=== PATIENT | female | born 1945 | race Caucasian/White ===

== ENCOUNTER 2021-07-31 12:09 | Emergency (ER) | payer MEDICARE, SELFPAY ==
--- NOTE | ~2021-07-31 | XR_ITS ---
EXAMINATION: XR tibia fibula RT 2V INDICATION: Right leg pain TECHNIQUE: Two views of the right tibia and fibula are obtained. COMPARISON: None available FINDINGS: There is moderate osteoarthritis of the knee. No fracture, dislocation, or subluxation is i dentified. Bone alignment at the knee and ankle is normal. IMPRESSION: 1. No acute osseous abnormality. Reviewed, dictated and finalized at location A.
--- NOTE | ~2021-07-31 | XR_ITS ---
EXAMINATION: XR knee RT 3V EXAM DATE: 07/31/2021 13:41 INDICATION: Generalized Right Knee Pain S/P Several Falls. TECHNIQUE: Three projections of the right knee. Correlation is made to right tibia/fibula exam maria guadalupe bee same date. FINDINGS: No evidence osteochondral defect or joint body in the right knee joint. There is moderate patellofemoral and medial tibiofemoral compartment primary osteoarthritis. There are no acute fractu res or dislocations identified. There is no subcutaneous gas. The soft tissue is unremarkable. Th ere are no radiopaque foreign bodies. No joint effusion. IMPRESSION: 1. XR knee RT 3V exam without acute osseous findings. 2. Moderate osteoarthritis. Reviewed, dictated and finalized at location B.
--- NOTE | ~2021-07-31 | XR_ITS ---
EXAMINATION: XR knee LT 3V EXAM DATE: 07/31/2021 13:41 INDICATION: Generalized Left Knee Pain S/P Several Falls . TECHNIQUE: Three projections of the left knee. There is no prior study for comparison. FINDINGS: No evidence osteochondral defect or joint body in the left knee joint. There is mild to m oderate tricompartmental primary osteoarthritis. No joint effusion. There are no acute fractures or dislocations identified. There is no subcutaneous gas. The soft tissue is unremarkable. There are no radiopaque foreign bodies. IMPRESSION: Mild to moderate left knee osteoarthritis. Reviewed, dictated and finalized at location B.
[2021-07-31 12:15] VITALS: BP 199/74; PULSE 68; RESP 16; TEMP 36.6; O2SAT 99
--- NOTE | 2021-07-31 12:49 | ECG_ITS ---
Measurements Intervals [place] Rate: 63 P: 54 NE: 199 QRS: -1 QRSD: 98 T: 30 QT: 457 QTc: 470 Interpretive Statements SINUS RHYTHM VENTRICULAR PREMATURE COMPLEX NONSPECIFIC ST & T-WAVE ABNORMALITY- DIFFUSE LEADS BASELINE ARTIFACT- I, II, III, AVR, AVF, V1, V3-V6 BORDERLINE ECG Electronically Signed On 07-31-2021 16:07:00 CDT by Jose Eduardo Zeng D.O.
--- NOTE | 2021-07-31 12:53 | ED.GENADULT ---
HPI - General Adult General Chief complaint: Fall Stated complaint: weakness, mult falls, UTI symptoms Time Seen by Provider: 07/31/21 12:13 Source: patient History of Present Illness HPI narrative: Patient is a 75 y/o female complaining of generalized weakness and frequent falls for last year. She states that she uses a walker for ambulation at baseline. Her last fall was yesterday. She states that her knees gave out causing her to fall. She denies passing out or hitting her head. She has some abrasion and pain to right lower leg after her fall. She has been having pain to right back for last few weeks. She has some diarrhea. Related Data Allergies Allergy/AdvReac Type Severity Reaction Status Date / Time No Known Allergies Allergy Verified 07/31/21 12:29 Review of Systems Constitutional: Constitutional: Denies chills, Denies fever(s), Denies headache(s) and Denies weakness Eyes: Eyes: Denies blurry vision ENT: Denies headache(s) and Denies neck pain Cardiovascular: Cardiovascular: Denies chest pain and Denies dyspnea Respiratory: Respiratory: Denies cough and Denies dyspnea Gastrointestinal: Gastrointestinal: Denies abdominal pain, Reports diarrhea, Denies nausea and Denies vomiting Genitourinary: Genitourinary: Denies hematuria and Denies dysuria Musculoskeletal: Musculoskeletal: Reports back pain, Denies neck pain and Reports other (right leg pain) Neurologic: Denies headache(s) and Denies weakness Exam Const: General: no acute distress and well developed Orientation/consciousness: oriented to person, oriented to place, oriented to time and patient oriented x3 HENMT: Head: normocephalic Ears: external ears normal General nose exam: Normal external nose present Eyes: General: appearance normal, both eyes and all related structures Conjunctivae: conjunctivae normal Neck: Neck: normal visual inspection and full ROM Chest: Chest palpation & inspection: normal inspection of the chest and no tenderness Resp: Effort & Inspection: normal respiratory effort Auscultation: clear to auscultation bilaterally Cardio: Rate: regular rate Rhythm: regular rhythm GI: GI Palp: No abdominal tenderness and Yes Soft to palpation Skin: General skin exam: normal color and turgor normal Trauma: abrasion (right lower leg) Neuro: General: oriented to person, oriented to place, oriented to time and patient oriented x3 Cognition (Neuro): normal cognition Extrem: General: normal to inspection, full ROM and no pedal edema Psych: Appearance: grossly normal Mental Status: mental status grossly normal Affect: normal affect Course Reevaluation(s) Reevaluation #1: Rechecked. Offered patient possible placement for rehab. Patient declined and wanted to go home. She states that she is able to ambulate with a walker at home. Date: 07/31/21 Time: 15:52 Vital Signs Vital signs: Vital Signs Temperature 36.6 C 07/31/21 12:15 Pulse Rate 68 07/31/21 12:15 Respiratory Rate 16 07/31/21 12:15 Blood Pressure 199/74 H 07/31/21 12:15 Pulse Oximetry 99 07/31/21 12:15 Temperature 36.6 C 07/31/21 12:15 Pulse Rate 72 07/31/21 16:07 Respiratory Rate 18 07/31/21 16:07 Blood Pressure 157/97 H 07/31/21 16:07 Pulse Oximetry 100 07/31/21 16:07 Medical Decision Making Vital Signs Vital Signs: Vital Signs Temperature 36.6 C 07/31/21 12:15 Pulse Rate 68 07/31/21 12:15 Respiratory Rate 16 07/31/21 12:15 Blood Pressure 199/74 H 07/31/21 12:15 Pulse Oximetry 99 07/31/21 12:15 Temperature 36.6 C 07/31/21 12:15 Pulse Rate 72 07/31/21 16:07 Respiratory Rate 18 07/31/21 16:07 Blood Pressure 157/97 H 07/31/21 16:07 Pulse Oximetry 100 07/31/21 16:07 Lab Data Result diagrams: 07/31/21 13:22 07/31/21 13:22 Labs: Lab Results 07/31/21 07/31/21 07/31/21 Range/Units 13:12 13:22 13:22 WBC 7.7 (4.5-10.0) K/mm3 RBC 4.41 (4.2-5.4) M/mm3 Hg
[2021-07-31] MEDS: TETANUS,DIPHTHERIA,AC PERTUSSIS ADULT (0.5 ML) BOOSTRIX IM (13:23)
[2021-07-31 13:35] LABS: Add Urine Microscopic? YES; Appearance Urine Clear (Clear); Bilirubin Urine Negative (Negative); Blood Urine Negative (Negative); Color Urine Yellow (Yellow); Glucose Urine UA Negative (Negative); Ketones Urine Trace mg/dL (Negative); Leukocyte Esterase Ur 2+ LEU/UL (Negative); Mucus Urine Rare /lpf; Nitrate Urine Negative (Negative); Protein Urine 2+ mg/dL (Negative); Specific Grav Ur 1.019 (1.001-1.035); Squamous Epithelial Cell Urine Rare /hpf (Few); Urobilinogen Urine Negative mg/dL (<2.0)
[2021-07-31 13:36] LABS: Basophils Percent Auto 0.4 % (0.2-1.2); Eosinophils Absolute Auto 0.1 K/mm3 (0-0.3); Eosinophils Percent Auto 0.7 % (0-4.4); Hematocrit 37.9 % (37.0-47.0); Hemoglobin 12.8 g/dL (12.0-15.0); Immature Granulocyte Absolute 0.03 K/mm3 (0.00-0.031); Immature Granulocyte Percent A 0.4 % (0-0.5); Lymphocytes Absolute Auto 1.67 K/mm3 (0.9-3.2); Lymphocytes Percent Auto 21.8 % (18.3-44.2); Mean Corpuscular HGB Conc 33.8 g/dl (32-36); Mean Corpuscular Volume 85.9 fl (80-100); Mean Platelet Volume 9.3 fl (7.4-10.4); Monocytes Absolute Auto 0.5 K/mm3 (0.1-0.6); Monocytes Percent Auto 7.1 % (2.6-8.5); Neutrophils Absolute Auto 5.3 K/mm3 (1.3-6.7); Neutrophils Percent Auto 69.6 % (45.5-73.1); Platelet Count Result 209 k/mm3 (150-375); Red Blood Count 4.41 M/mm3 (4.2-5.4); White Blood Count 7.7 K/mm3 (4.5-10.0)
[2021-07-31 13:42] LABS: Alanine Aminotransferase 18 U/L (4-35); Albumin Level 4.1 g/dL (3.5-5.1); Alkaline Phosphatase 81 U/L (38-126); Anion Gap 10 mmol/L (8-16); Aspartate Amino Transferase 24 U/L (14-36); Bilirubin,Total 0.7 mg/dL (0.2-1.3); Blood Urea Nitrogen 18 mg/dL (7-17); Carbon Dioxide 26 mmol/L (22-30); Chloride 98 mmol/L (98-107); Estimated CRCL calculation 76 ml/min; Estimated Glomerular Filt Rate > 60; Glucose 115 mg/dL (65-110); Potassium 3.4 mmol/L (3.4-5.0); Sodium 134 mmol/L (137-145)
[2021-07-31 14:49] VITALS: BP 189/73; PULSE 70; RESP 22; O2SAT 98
[2021-07-31 16:07] VITALS: BP 157/97; PULSE 72; RESP 18; O2SAT 100
== END 2021-07-31 16:29 | disposition home or self-care (01) ==
PROVIDERS: Emergency Provider Emergency Medicine
DX: M17.0 Bilateral primary osteoarthritis of knee (principal); S80.811A Abrasion, right lower leg, initial encounter; N39.0 Urinary tract infection, site not specified; Z23 Encounter for immunization; W18.39XA Other fall on same level, initial encounter
CPT/HCPCS: 36415; 51701; 73562; 73590; 80053; 81001; 85025; 87086; 90471; 90715; 93005; 99283

== ENCOUNTER 2021-08-07 13:34 | Emergency (ER) | payer MEDICARE, SELFPAY ==
--- NOTE | ~2021-08-07 | XR_ITS ---
EXAMINATION: XR chest 1V portable INDICATION: Shortness of breath TECHNIQUE: Portable AP chest at 1409 hours COMPARISON: None available FINDINGS: The lungs are free of acute opacities. There is no pleural effusion or pneumothorax. The ca rdiomediastinal silhouette is normal. There is mild osteoarthritis of the shoulders. IMPRESSION: 1. No acute cardiopulmonary abnormality. Reviewed, dictated and finalized at location B.
--- NOTE | ~2021-08-07 | CT_ITS ---
EXAMINATION: CT abdomen pelvis wo con DATE: 08/07/2021 16:10 INDICATION: Right flank pain TECHNIQUE: Computed tomography (CT) of the abdomen and pelvis was performed without intravenous contr ast. The dose-length product (DLP) was 996.10 mGy-cm. Automated exposure control and iterative recons truction technique were employed. COMPARISON: None FINDINGS: Minimal dependent atelectasis is present in the lung bases. The heart size is normal. The l iver, spleen, pancreas, and adrenal glands are normal. The gallbladder is surgically absent. The kidn eys are unremarkable. No stones are identified in the kidneys, ureters, or bladder. There is no hydro nephrosis or hydroureter. There is calcified atherosclerosis of the aorta and many of the other arter ies. No pathologically enlarged abdominal or pelvic lymph nodes are identified. There is no free intr aperitoneal gas or evidence of bowel obstruction. There is moderate lumbar spondylosis. There is a fa t-containing umbilical hernia. IMPRESSION: 1. No CT correlate for the patient's symptoms. No urolithiasis, hydronephrosis, or hydroureter identi fied. Reviewed, dictated and finalized at location B. IMPRESSION: 1. No CT correlate for the patient's symptoms. No urolithiasis, hydronephrosis, or hydroureter identified.
--- NOTE | ~2021-08-07 | CT_ITS ---
EXAMINATION: CTA chest PE protocol EXAM DATE: 08/07/2021 16:10 INDICATION: Right flank pain, 3-4 days plus of breath. Nausea. Positive for edema. Recent kidney infe ction. TECHNIQUE: Spiral CTA of the chest (pulmonary arteries) was performed with 100 cc Omnipaque 350 intr avenous contrast injection. Images were acquired during the pulmonary arterial phase. Coronal maxi mum intensity projection 3D-reconstructions were created by the technologist on dedicated workstation . Axial, coronal and sagittal reformatted images were reviewed. The dose-length product (DLP) for t his examination was 792.17 mGy-cm. The exposure was tailored according to patient size (auto mA exp osure control), and iterative reconstruction (ASIR) was used as additional dose reduction technique. There is no prior study for comparison. FINDINGS: Pulmonary arteries are well opacified and without intraluminal filling defects. No thora cic aortic dissection. The lungs are clear. There are no pleural or pericardial effusions. Trach eobronchial tree is patent. There is no mediastinal, hilar or axillary lymphadenopathy. There is no pneumothorax. There is cardiomegaly. No evidence of coronary arterial calcification. Upper ab domen is unremarkable. There is thoracic spondylosis without osteoblastic or osteolytic lesions nabila ntified. IMPRESSION: 1. No pulmonary emboli or acute findings. 2. Cardiomegaly. Reviewed, dictated and finalized at location A.
--- NOTE | ~2021-08-07 | XR_ITS ---
EXAMINATION: XR abdomen/kub 1V INDICATION: Right flank pain TECHNIQUE: Supine views of the abdomen were obtained on 2 radiographs. COMPARISON: None FINDINGS: The bowel gas pattern is normal. Calcifications in the pelvis have the appearance of phlebo liths. No definite urolithiasis is identified. There is mild osteoarthritis of the hips. IMPRESSION: 1. No definite urolithiasis identified. Reviewed, dictated and finalized at location B.
[2021-08-07 13:33] VITALS: BP 178/77; PULSE 71; RESP 18; TEMP 36.8; O2SAT 99
--- NOTE | 2021-08-07 14:00 | ECG_ITS ---
Measurements Intervals [place] Rate: 62 P: 45 IN: 193 QRS: -10 QRSD: 92 T: 5 QT: 421 QTc: 429 Interpretive Statements SINUS RHYTHM DELAYED PRECORDIAL R/S TRANSITION LEFT VENTRICULAR HYPERTROPHY AND ST-T CHANGES CONSIDER INFERIOR INFARCT, AGE INDETERMINATE BORDERLINE ST-T WAVE ABNORMALITY- ANTEROLATERAL LEADS BASELINE ARTIFACT- I, II, III, AVR, AVL, AVF, V1-V6 ABNORMAL ECG Electronically Signed On 08-07-2021 15:00:35 CDT by Jose Eduardo Zeng D.O.
[2021-08-07 14:28] LABS: Alveolar/Arterial O2 Gradient 18.5 mmHg; Carboxyhemoglobin 0.5 % THb (0-2.0); Fractional Inspired Oxygen 21 %; HCO3 ABG 26.7 mEq/l (22.0-26.0); Methemoglobin ABG 0.2 %THb (0-1.5); Oxygen Content ABG 17.9 %vol (16.0-22.0); Oxygen Saturation ABG 96.1 % (95.0-100.0); PCO2 ABG 42.2 mmHg (35.0-45.0); PO2 ABG 80.7 mmHg (80.0-100.0); PO2 FiO2 Ratio Arterial Blood 3.84 %; Reduced Hemoglobin 4.3 %THb (0-5.0); Total Hemoglobin 13.4 g/dL (12.0-18.0); pH ABG 7.419 (7.350-7.450)
[2021-08-07 14:29] LABS: Device ROOM AIR; Modified Allen's Test Pass; Site Drawn RIGHT RADIAL
--- NOTE | 2021-08-07 14:34 | ED.GENADULT ---
HPI - General Adult General Chief complaint: Unspecified Stated complaint: numbness in arms, sob 3-4 days, HTN Time Seen by Provider: 08/07/21 13:51 Source: patient and RN notes reviewed Mode of arrival: EMS Limitations: no limitations History of Present Illness HPI narrative: This is a 76 year old female with history of anxiety and hypertension who presents for evaluation of anxiety and right flank pain. Patient states she was here 1 week ago with right lower back pain. She was diagnosed with a UTI at that time. She has been taking antibiotics for her pain but she states her symptoms are not getting bed. She reports worsening right flank pain and right side abdominal pain. She denies dysuria or hematuria. She describes her urine as more yellow than usual. She reports nausea but denies vomiting or fever. She seems to be most concern with anxiety. She reports she has been short of breath for a few days and anxious. She has been unable to sleep. She denies cough or chest pain. She was taking medication for anxiety but she is unsure of the names of her her medication. She states she stopped taking her home medication 2 weeks ago based on advice of granddaughter. Related Data Allergies Allergy/AdvReac Type Severity Reaction Status Date / Time No Known Allergies Allergy Verified 07/31/21 12:29 Review of Systems Review of Systems: All systems reviewed & are unremarkable except as noted in HPI and below [facility] Past Medical History Medical History (Updated 08/08/21 @ 00:01 by Vickie Mays) Anxiety Depression Hypertension Surgical History Surgical History (Updated 08/07/21 @ 14:40 by Roselyn Oliver MD) Hx of cholecystectomy Exam Const: General: no acute distress, well developed and anxious Limitations: no limitations HENMT: Head: normocephalic and atraumatic Mouth: Yes Normal oral and palatal mucosa present, Yes lip normal, Yes oropharynx normal and Yes moist mucous membranes Throat: posterior oropharynx normal, tonsils normal and uvula midline Eyes: EOM: EOMs intact bilaterally Resp: Effort & Inspection: normal respiratory effort and able to speak in complete sentences Auscultation: clear to auscultation bilaterally Cardio: Jugular venous distension: no JVD Rate: regular rate Rhythm: regular rhythm GI: GI Palp: Yes Soft to palpation, No Firmness to palpation present (GI), Yes Tenderness to palpation present (GI) (RUQ), No Guarding due to palpation present (GI) and No No hepatosplenomegaly present Auscultation: normal bowel sounds Back/Spine/Pelvis: Back: CVA tenderness (right) Skin: General skin exam: normal color Trauma: no lacerations or abrasions Neuro: General: patient oriented x3 and moves all extremities Cranial nerves: Yes CN's II-XII intact bilaterally Speech: normal speech Gait exam (Neuro): Normal gait present Motor exam (neuro): 5/5 motor strength present throughout, Pronator motor function not present and No tremor noted Sensory Exam: normal sensation Extrem: General: normal to inspection and full ROM Psych: Appearance: grossly normal Course Reevaluation(s) Reevaluation #1: I discussed with patient imaging was unremarkable. I reviewed her labs from today and her previous ED visit. Her urine culture was negative so I will not start on antibiotics. Her flank pain does not seem to be caused by a UTI. She will be placed on muscle relaxer. And she needs to restart her medications. She had no neurodeficits in ER Date: 08/07/21 Time: 17:34 Vital Signs Vital signs: Vital Signs Temperature 98.3 F 08/07/21 13:33 Pulse Rate 71 08/07/21 13:33 Respiratory Rate 18 08/07/21 13:33 Blood Pressure 178/77 H 08/07/21 13:33 Pulse Oximetry 99 08/07/21 13:33 Temperature 98.3 F 08/07/21 13:33 Pulse Rate 81 08/07/21 18:26 Respiratory Rate 16 08/07/21 18:26 Blood Pressure 174/98 H 08/07/21 18:26 Pulse Oximetry 96 08/07/21 18:26 Medical Decision M
[2021-08-07 14:55] LABS: Basophils Percent Auto 0.5 % (0.2-1.2); Eosinophils Absolute Auto 0.1 K/mm3 (0-0.3); Eosinophils Percent Auto 1.5 % (0-4.4); Hematocrit 41.7 % (37.0-47.0); Hemoglobin 13.6 g/dL (12.0-15.0); Immature Granulocyte Absolute 0.02 K/mm3 (0.00-0.031); Immature Granulocyte Percent A 0.3 % (0-0.5); Lymphocytes Percent Auto 26.1 % (18.3-44.2); Mean Corpuscular HGB Conc 32.6 g/dl (32-36); Mean Corpuscular Hemoglobin 29.2 pg (26-34); Mean Corpuscular Volume 89.5 fl (80-100); Mean Platelet Volume 9.6 fl (7.4-10.4); Monocytes Absolute Auto 0.5 K/mm3 (0.1-0.6); Monocytes Percent Auto 8.3 % (2.6-8.5); Neutrophils Absolute Auto 4.1 K/mm3 (1.3-6.7); Neutrophils Percent Auto 63.3 % (45.5-73.1); Platelet Count Result 241 k/mm3 (150-375); Red Blood Count 4.66 M/mm3 (4.2-5.4); Red Cell Distribution Width 14.6 % (11.5-14.5); White Blood Count 6.5 K/mm3 (4.5-10.0)
[2021-08-07 15:14] LABS: INR 0.8; Partial Thromboplastin Time 21.9 SECONDS (22.3-36.8); Prothrombin Time 11.5 Seconds (11.1-14.7)
[2021-08-07 15:15] LABS: Lipase 28 U/L (23-300)
[2021-08-07 15:17] LABS: D Dimer 1.73 ug/mL (<0.48)
[2021-08-07 15:23] LABS: NT Pro B Type Natriuretic Pept 245 pg/mL (5-100)
[2021-08-07 15:26] LABS: Troponin I < 0.012 ng/mL (0.000-0.034)
[2021-08-07 15:31] LABS: Alanine Aminotransferase 27 U/L (4-35); Albumin Level 4.5 g/dL (3.5-5.1); Alkaline Phosphatase 71 U/L (38-126); Anion Gap 8 mmol/L (8-16); Aspartate Amino Transferase 47 U/L (14-36); Blood Urea Nitrogen 16 mg/dL (7-17); Calcium 9.3 mg/dL (8.4-10.2); Carbon Dioxide 26 mmol/L (22-30); Chloride 104 mmol/L (98-107); Estimated CRCL calculation 86 ml/min; Estimated Glomerular Filt Rate > 60; Glucose 107 mg/dL (65-110); Potassium 4.8 mmol/L (3.4-5.0); Sodium 138 mmol/L (137-145)
[2021-08-07 16:21] LABS: Bilirubin,Total 1.1 mg/dL (0.2-1.3)
[2021-08-07 16:32] LABS: Add Urine Microscopic? YES; Appearance Urine Cloudy (Clear); Bacteria Urine Trace /hpf; Bilirubin Urine Negative (Negative); Blood Urine Negative (Negative); Color Urine Yellow (Yellow); Glucose Urine UA Negative (Negative); Ketones Urine Negative (Negative); Leukocyte Esterase Ur 3+ LEU/UL (Negative); Mucus Urine Rare /lpf; Nitrate Urine Negative (Negative); Protein Urine 1+ mg/dL (Negative); Specific Grav Ur 1.019 (1.001-1.035); Squamous Epithelial Cell Urine Many /hpf (Few); Urobilinogen Urine Negative mg/dL (<2.0)
[2021-08-07] MEDS: LORazepam (*CRX) 0.5 MG TABLET PO (16:51)
[2021-08-07 18:26] VITALS: BP 174/98; PULSE 81; RESP 16; O2SAT 96
--- NOTE | 2021-08-31 09:46 | PCCCNOTE ---
Rec'd call from Pat stating her legs are still bothering her and her side is still hurting. She states she has taken all her meds given for UTI and muscle spams and requesting refill. Explained that she would need to be seen in ED if feels she still needs treatment or wait until tomorrow and call her PMD. Voices understanding. Encouraged her to drink plenty of fluids and she states she is doing that.
== END 2021-08-07 18:28 | disposition home or self-care (01) ==
PROVIDERS: Emergency Provider General Practice
DX: R10.9 Unspecified abdominal pain (principal); R06.00 Dyspnea, unspecified; F41.9 Anxiety disorder, unspecified; I10 Essential (primary) hypertension; I51.7 Cardiomegaly; R94.31 Abnormal electrocardiogram [ECG] [EKG]
CPT/HCPCS: 36415; 36600; 71045; 71275; 74018; 74176; 80053; 81001; 82375; 82805; 83050; 83690; 83880; 84484; 85025; 85380; 85610; 85730; 87086; 87088; 93005; 99284; A9270; Q9967

== ENCOUNTER 2021-09-02 10:43 | Emergency (ER) | payer MEDICARE, OTHER, SELFPAY ==
[2021-09-02] VITALS (12 sets, daily range): BP systolic 112–179; BP diastolic 62–87; PULSE 69–97; RESP 16–27; TEMP 36.2; O2SAT 96–98
--- NOTE | ~2021-09-02 | XR_ITS ---
EXAMINATION: XR lumbar spine 2-3V DATE: 09/02/2021 11:29 INDICATION: Right-sided back pain TECHNIQUE: Anteroposterior and lateral views of the lumbar spine, and cone-down lateral view of the l umbosacral junction were obtained. COMPARISON: CT, 08/07/2021 FINDINGS: There is mild lumbar levocurvature. The vertebral body heights and alignment are normal. Th ere is mild loss of intervertebral disc space height at multiple levels in the lumbar spine. Small de generative osteophytes project from the anterior endplates of multiple vertebral bodies. Moderate fac et osteoarthritis is present in the lower lumbar spine. IMPRESSION: 1. Moderate lumbar spondylosis without acute findings or significant interval change. Reviewed, dictated and finalized at location A. RECORDING MIXER IMPRESSION: 1. Moderate lumbar spondylosis without acute findings or significant interval jacki martines
[2021-09-02] MEDS: KETOROLAC 30 MG/ML VIAL (*BKC) IV PUSH (11:29)
--- NOTE | 2021-09-02 12:43 | ED.GENADULT ---
HPI - General Adult General Chief complaint: Unspecified Stated complaint: LEG SHAKING Time Seen by Provider: 09/02/21 10:46 History of Present Illness HPI narrative: Patient is a 76-year-old female who presents ER with back pain and leg jerking. This is the third visit in the last month. Initially it was thought she might have pyelonephritis and she was treated with antibiotics. Urine culture did not grow out any infection. Patient has had no urinary frequency urgency or dysuria. No hematuria. Patient said no nausea or vomiting. She reports her leg will shake at times and she cannot sleep. Pain in her right back is aching. Nonradiating. No saddle anesthesia. Patient has been taking ibuprofen without relief. She has also taken Flexeril in the past. She does not think that helped as well. Related Data Allergies Allergy/AdvReac Type Severity Reaction Status Date / Time No Known Allergies Allergy Verified 07/31/21 12:29 Review of Systems Review of Systems: All systems reviewed & are unremarkable except as noted in HPI and below Constitutional: Constitutional: Denies chills and Denies fever(s) Genitourinary: Genitourinary: Denies hematuria, Denies dysuria, Denies flank pain and Denies urinary urgency Musculoskeletal: Musculoskeletal: Reports back pain, Reports muscle cramps and Denies muscle weakness Neurologic: Denies dizziness, Denies headache(s), Denies numbness and Reports restless legs PMFSH Past Medical History Medical History (Updated 09/02/21 @ 13:22 by Julio César Daniel MD) Anxiety Depression Hypertension Surgical History Surgical History (Updated 08/07/21 @ 14:40 by Roselyn Oliver MD) Hx of cholecystectomy Exam Narrative: GENERAL: Well-appearing, obese, and in no acute distress. HEAD: Normocephalic, atraumatic. EYES: PERRL and EOMI. CHEST: Clear to auscultation. No respiratory distress. HEART: Regular rate and rhythm. Normal peripheral pulses. ABDOMEN: Soft, nontender, nondistended. Back: No reproducible midline or paraspinal muscular tenderness of the thoracic or lumbar levels. EXTREMITIES: Normal range of motion. No edema. SKIN: Warm, dry, no rash. NEURO: Sensation intact in lower extremities. Patient will occasionally shake her right lower leg when talking about it. Otherwise it is not shaking at rest. Patient will then start wiggle her whole body while laying in the bed. Alert and oriented x3. PSYCH: Normal mood and affect. Course Course Emergency Course: Reviewed patient's previous lab and imaging results. X-ray here unremarkable. Discussed case with the patient and her daughter. Patient apparently has walker at home that she does not use and has had multiple falls over the last year. They discontinued patient's anxiety medication and Ambien due to these falls. This seems like a very good idea in my opinion. Patient often does not use her walker. I recommended that patient needs to do weightbearing at home to help with restlessness in her legs. Do not know comfortable starting on any sedating type medications that could provoke falls. Recommend alternating ibuprofen and Tylenol for back pain. Vital Signs Vital signs: Vital Signs Temperature 97.2 F L 09/02/21 10:40 Pulse Rate 97 09/02/21 10:40 Respiratory Rate 17 09/02/21 10:40 Blood Pressure 112/62 09/02/21 10:40 Pulse Oximetry 97 09/02/21 10:40 Temperature 97.2 F L 09/02/21 10:40 Pulse Rate 97 09/02/21 10:40 Respiratory Rate 17 09/02/21 10:40 Blood Pressure 112/62 09/02/21 10:40 Pulse Oximetry 97 09/02/21 10:40 Medical Decision Making Vital Signs Vital Signs: Vital Signs Temperature 97.2 F L 09/02/21 10:40 Pulse Rate 97 09/02/21 10:40 Respiratory Rate 17 09/02/21 10:40 Blood Pressure 112/62 09/02/21 10:40 Pulse Oximetry 97 09/02/21 10:40 Temperature 97.2 F L 09/02/21 10:40 Pulse Rate 97 09/02/21 10:40 Respiratory Rate 17 09/02/21 10:40 Blood Pres
--- NOTE | 2021-09-02 13:50 | PC.NURSE ---
Patient requesting to speak to care coordination regarding getting help at home.
--- NOTE | 2021-09-02 14:17 | PCCCNOTE ---
Information given to pt: doctor list, [facility] of A[facility] ([facility] #) for resources that she can reach out to for assistance. Also encouraged to contact current doctor regarding home health and PT services.
== END 2021-09-02 14:45 | disposition home or self-care (01) ==
PROVIDERS: Emergency Provider Emergency Medicine
DX: M54.50 Low back pain, unspecified (principal); G25.81 Restless legs syndrome; I10 Essential (primary) hypertension; M47.816 Spondylosis without myelopathy or radiculopathy, lumbar region
CPT/HCPCS: 72100; 96374; 99284; J1885

== ENCOUNTER 2022-06-07 15:24 | Emergency (ER) | payer MEDICARE, SELFPAY ==
[2022-06-07] VITALS (12 sets, daily range): BP systolic 147–175; BP diastolic 75–80; PULSE 83; RESP 16; TEMP 36.1; O2SAT 96–100
--- NOTE | ~2022-06-07 | XR_ITS ---
EXAMINATION: XR chest 2V DATE: 06/07/2022 16:07 INDICATION: Chest pain TECHNIQUE: PA and lateral views of the chest are obtained. COMPARISON: 08/07/2021 FINDINGS: The lungs are free of acute opacities. No pleural effusion or pneumothorax. The cardiomedia stinal silhouette is normal. There is moderate thoracic spondylosis. IMPRESSION: 1. No acute cardiopulmonary abnormality. Reviewed, dictated and finalized at location A.
--- NOTE | ~2022-06-07 | CT_ITS ---
EXAMINATION: CT abdomen pelvis w con DATE: 06/07/2022 20:31 INDICATION: Abdominal pain TECHNIQUE: Computed tomography (CT) of the abdomen and pelvis was performed with 100 mL Omnipaque-350 intravenous contrast. Automated exposure control and iterative reconstruction technique were employe d. The dose-length product was 1179.20 mGy-cm. COMPARISON: None FINDINGS: Mild dependent atelectasis in the bilateral lower lobes. Small calcified left lower lobe nodule along with calcified left hilar lymph nodes consistent with old granulomatous disease. Mild cardiomegaly. No pericardial or pleural effusion. Gallbladder is not visualized and likely surgically absent. Liver , pancreas, bilateral adrenal glands and left kidney are normal. Mild right hydronephrosis without di lation of the renal pelvis or ureter with no evident obstructing stones or masses. Bladder, uterus an d bilateral adnexa are normal. Moderate to large amount of stool scattered throughout the colon. No a bnormal bowel wall thickening or obstruction. The appendix is not visualized. No pericecal inflammato ry change to suggest acute appendicitis. No free intraperitoneal gas or fluid. No pathologically enla rged abdominal or pelvic lymphadenopathy. Mild lumbar dextrocurvature with mild to moderate lumbar an d lower thoracic spondylosis. Small fat-containing umbilical hernia. IMPRESSION: 1. Mild right hydronephrosis without evident obstructing stone or mass. 2. Cardiomegaly. Reviewed, dictated and finalized at location A.
--- NOTE | 2022-06-07 15:36 | ECG_ITS ---
Measurements Intervals [place] Rate: 77 P: 37 [place]: 191 QRS: -11 QRSD: 90 T: 7 QT: 373 QTc: 423 Interpretive Statements SINUS RHYTHM LOW QRS VOLTAGE IN PRECORDIAL LEADS LEFT VENTRICULAR HYPERTROPHY WITH ST-T CHANGE CONSIDER INFERIOR INFARCT, AGE INDETERMINATE NONSPECIFIC ST & T-WAVE ABNORMALITY- ANTERIOR LEADS ABNORMAL ECG COMPARISON TO PRIOR ECG 08-07-21 14:50 NO SIGNIFICANT CHANGE Electronically Signed On 06-07-2022 15:54:42 CDT by Jose Eduardo Zeng D.O.
[2022-06-07 16:01] LABS: Basophils Percent Auto 0.4 % (0.2-1.2); Eosinophils Absolute Auto 0.1 K/mm3 (0-0.3); Eosinophils Percent Auto 1.4 % (0-4.4); Hematocrit 39.1 % (37.0-47.0); Hemoglobin 12.5 g/dL (12.0-15.0); Immature Granulocyte Absolute 0.03 K/mm3 (0.00-0.031); Immature Granulocyte Percent A 0.4 % (0-0.5); Lymphocytes Absolute Auto 1.72 K/mm3 (0.9-3.2); Lymphocytes Percent Auto 22.1 % (18.3-44.2); Mean Corpuscular Hemoglobin 28.5 pg (26-34); Mean Corpuscular Volume 89.1 fl (80-100); Mean Platelet Volume 9.1 fl (7.4-10.4); Monocytes Absolute Auto 0.5 K/mm3 (0.1-0.6); Monocytes Percent Auto 5.8 % (2.6-8.5); Neutrophils Absolute Auto 5.5 K/mm3 (1.3-6.7); Neutrophils Percent Auto 69.9 % (45.5-73.1); Platelet Count Result 262 k/mm3 (150-375); Red Blood Count 4.39 M/mm3 (4.2-5.4); Red Cell Distribution Width 14.3 % (11.5-14.5); White Blood Count 7.8 K/mm3 (4.5-10.0)
[2022-06-07 16:11] LABS: Alanine Aminotransferase 15 U/L (6-35); Albumin Level 4.1 g/dL (3.5-5.1); Alkaline Phosphatase 93 U/L (38-126); Anion Gap 10 mmol/L (8-16); Aspartate Amino Transferase 25 U/L (14-36); Bilirubin,Total 0.4 mg/dL (0.2-1.3); Blood Urea Nitrogen 12 mg/dL (7-17); Calcium 9.3 mg/dL (8.4-10.2); Carbon Dioxide 28 mmol/L (22-30); Chloride 98 mmol/L (98-107); Estimated Glomerular Filt Rate > 60; Glucose 135 mg/dL (65-110); Lipase 17 U/L (23-300); Potassium 4.2 mmol/L (3.4-5.0); Prothrombin Time 12.9 Seconds (11.1-14.7); Sodium 136 mmol/L (137-145)
[2022-06-07 16:12] LABS: Partial Thromboplastin Time 30.5 SECONDS (22.3-36.8)
[2022-06-07 16:22] LABS: Troponin I < 0.012 ng/mL (0.000-0.034)
--- NOTE | 2022-06-07 19:46 | PC.NURSE ---
rectal exam performed by provider with contract writer assistance
[2022-06-07] MEDS: ONDANSETRON INJ 4 MG/2 ML VIAL IV PUSH (20:11)
[2022-06-07] MEDS: SODIUM CHLORIDE 0.9% IV 1,000 ML 999 ML IV CONT (20:13)
[2022-06-07] MEDS: MORPHINE SULFATE (*CRX) 4 MG/ML INJ IV PUSH (20:13)
--- NOTE | 2022-06-07 20:44 | ED.GENADULT ---
HPI - General Adult General Chief complaint: Unspecified Stated complaint: lower back pain, constipation Time Seen by Provider: 06/07/22 19:36 History of Present Illness HPI narrative: Patient 76-year-old female who presents the emergency department with chief complaint of abdominal pain. The patient reports that she recently was treated for an abdominal infection at [facility] and the patient reports that for the last several days has been having worsening abdominal pain and reports that she has had constipation patient states that she last had a bowel movement about 4 days ago and had small hard stools at that time. The patient states the pain is worse with movement and improved with rest Related Data Allergies Allergy/AdvReac Type Severity Reaction Status Date / Time No Known Allergies Allergy Verified 06/07/22 18:53 Review of Systems Review of Systems: A 10 system review of systems was completed on the patient and is negative except for what is stated in the HPI. Nursing and ancillary documentation was reviewed. PMFSH Past Medical History Medical History Anxiety Depression Hypertension Surgical History Surgical History Hx of cholecystectomy Exam Narrative: GENERAL: Well-appearing, well-nourished, and in no acute distress. HEAD: Normocephalic, atraumatic. EYES: PERRLA and EOMI. ENT: Nares clear, no rhinorrhea or epistaxis. Mucous membranes moist. NECK: Supple. CHEST: Clear to auscultation. No respiratory distress. HEART: Regular rate and rhythm. No murmur heard. Normal peripheral pulses. ABDOMEN: Soft, tender in the right side of the abdomen, nondistended, normal active bowel sounds. : Guaiac negative stool no fecal impaction EXTREMITIES: Normal range of motion. No edema. SKIN: Warm, dry, no rash. NEURO: No focal deficits. Alert and oriented x3. PSYCH: Normal mood and affect. Course Course Emergency Course: Patient's laboratory studies showed no evidence of acute abnormality. CT scan showed some right-sided hydronephrosis urinalysis showed no red blood cells and negative leukocyte esterase. There is no evidence of obstructing stone on the CT normal renal function and normal white blood cell count. The patient will be referred to follow-up with urology and primary care the patient be discharged home. Vital Signs Vital signs: Vital Signs Temperature 36.1 C L 06/07/22 15:30 Pulse Rate 83 06/07/22 15:30 Respiratory Rate 16 06/07/22 15:30 Blood Pressure 156/80 H 06/07/22 15:30 Pulse Oximetry 98 06/07/22 15:30 Temperature 36.1 C L 06/07/22 15:30 Pulse Rate 83 06/07/22 15:30 Respiratory Rate 16 06/07/22 15:30 Blood Pressure 175/75 H 06/07/22 21:16 Pulse Oximetry 97 06/07/22 22:38 Medical Decision Making Vital Signs Vital Signs: Vital Signs Temperature 36.1 C L 06/07/22 15:30 Pulse Rate 83 06/07/22 15:30 Respiratory Rate 16 06/07/22 15:30 Blood Pressure 156/80 H 06/07/22 15:30 Pulse Oximetry 98 06/07/22 15:30 Temperature 36.1 C L 06/07/22 15:30 Pulse Rate 83 06/07/22 15:30 Respiratory Rate 16 06/07/22 15:30 Blood Pressure 175/75 H 06/07/22 21:16 Pulse Oximetry 97 06/07/22 22:38 Lab Data Result diagrams: 06/07/22 15:51 06/07/22 15:51 Labs: Lab Results 06/07/22 06/07/22 06/07/22 Range/Units 15:51 15:51 15:51 WBC 7.8 (4.5-10.0) K/mm3 RBC 4.39 (4.2-5.4) M/mm3 Hgb 12.5 (12.0-15.0) g/dL Hct 39.1 (37.0-47.0) % MCV 89.1 (80-100) fl MCH 28.5 (26-34) pg MCHC 32.0 (32-36) g/dl RDW 14.3 (11.5-14.5) % Plt Count 262 (150-375) k/mm3 MPV 9.1 (7.4-10.4) fl Immature Gran % (Auto) 0.4 (0-0.5) % Neut % (Auto) 69.9 (45.5-73.1) % Lymph % (Auto) 22.1 (18.3-44.2) % Hall % (Auto) 5.8 (2.6-8.5) % Eos
[2022-06-07 22:54] LABS: Lactic Acid Reflex 1.5 mmol/L (0.7-2.0)
[2022-06-07 23:06] LABS: Troponin I < 0.012 ng/mL (0.000-0.034)
[2022-06-07 23:33] LABS: Appearance Urine Clear (Clear); Bilirubin Urine Negative (Negative); Blood Urine Negative (Negative); Color Urine Yellow (Yellow); Glucose Urine UA Negative (Negative); Ketones Urine 1+ mg/dL (Negative); Leukocyte Esterase Ur Negative LEU/UL (Negative); Nitrate Urine Negative (Negative); Protein Urine Negative (Negative); Urobilinogen Urine 0.2 mg/dL (<2.0)
[2022-06-07 23:42] LABS: Mucus Urine Rare /lpf; RBC Urine 0-2 /hpf (0-2); WBC Urine 0-3 /hpf
[2022-06-08 00:35] VITALS: BP 159/84; PULSE 87; RESP 20; O2SAT 98
[2022-06-08 01:05] LABS: Add Urine Microscopic? YES
== END 2022-06-08 00:36 | disposition home or self-care (01) ==
PROVIDERS: Emergency Medicine; Emergency Provider Emergency Medicine
DX: R10.9 Unspecified abdominal pain (principal); N13.30 Unspecified hydronephrosis; I10 Essential (primary) hypertension; R94.31 Abnormal electrocardiogram [ECG] [EKG]; I51.7 Cardiomegaly
CPT/HCPCS: 36415; 71046; 74177; 80053; 81001; 83605; 83690; 84484; 85025; 85610; 85730; 93005; 96361; 96374; 96375; 99284; J2270; J2405; J7030; Q9967

== ENCOUNTER 2023-01-06 15:22 | Emergency (ER) | payer MEDICARE, SELFPAY ==
--- NOTE | ~2023-01-06 | CT_ITS ---
EXAMINATION: CT abdomen pelvis w con DATE: 01/06/2023 18:34 INDICATION: rlq pain TECHNIQUE: Computed tomography (CT) of the abdomen and pelvis was performed with 100 mL Omnipaque-350 intravenous contrast. Automated exposure control and iterative reconstruction technique were employe d. The dose-length product was 1347.38 mGy-cm. COMPARISON: 06/07/2022. FINDINGS: Lower thorax: Minimal dependent atelectasis. Coronary artery calcification. Liver: Steatosis. Biliary/Gallbladder: Gallbladder is absent. No bile duct dilation. Pancreas: Fatty atrophy. Spleen: Granulomatous calcifications. Adrenals:No mass. Kidneys: No obstructing calcification or hydronephrosis. Bilateral hypodensities, too small to charac terize but most likely represent cysts. GI tract: No small or large bowel dilation. Appendix not visualized and likely surgically absent. Mesentery/Peritoneum: No ascites, mass, or free air. Retroperitoneum: No mass. Atherosclerotic abdominal aortic and/or arterial calcifications. Pelvis: Pelvic organs are within normal limits. Soft Tissues: Small uncomplicated fat-containing umbilical hernia. Bones: No acute osseous finding. IMPRESSION: No acute abdominal pelvic process detected. No CT finding to explain right lower quadrant pain. Reviewed, dictated and finalized at location K. IMPRESSION: No acute abdominal pelvic process detected. No CT finding to explain right lowe r quadrant pain.
--- NOTE | 2023-01-06 15:23 | ECG_ITS ---
Measurements Intervals [place] Rate: 81 P: 51 [place]: 196 QRS: -5 QRSD: 87 T: 28 QT: 375 QTc: 436 Interpretive Statements SINUS RHYTHM LEFT VENTRICULAR HYPERTROPHY AND ST-T CHANGE [VOLTAGE CRITERIA PLUS ST/T ABNORMALITY] COMPARED TO ECG 06/07/2022 15:43:51 NO SIGNIFICANT CHANGES Electronically Signed On 01-07-2023 11:51:48 CDT by Nenita Deshpande M.D.
[2023-01-06 15:41] VITALS: BP 176/83; PULSE 88; RESP 19; TEMP 36.8; O2SAT 95
[2023-01-06 16:03] LABS: Basophils Percent Auto 0.4 % (0.2-1.2); Eosinophils Percent Auto 0.3 % (0-4.4); Hematocrit 41.3 % (37.0-47.0); Hemoglobin 13.5 g/dL (12.0-15.0); Immature Granulocyte Absolute 0.03 K/mm3 (0.00-0.031); Immature Granulocyte Percent A 0.3 % (0-0.5); Lymphocytes Absolute Auto 1.96 K/mm3 (0.9-3.2); Lymphocytes Percent Auto 17.7 % (18.3-44.2); Mean Corpuscular HGB Conc 32.7 g/dl (32-36); Mean Corpuscular Hemoglobin 28.7 pg (26-34); Mean Corpuscular Volume 87.9 fl (80-100); Mean Platelet Volume 9.6 fl (7.4-10.4); Monocytes Absolute Auto 0.6 K/mm3 (0.1-0.6); Monocytes Percent Auto 5.6 % (2.6-8.5); Neutrophils Absolute Auto 8.4 K/mm3 (1.3-6.7); Neutrophils Percent Auto 75.7 % (45.5-73.1); Platelet Count Result 302 k/mm3 (150-375); Red Cell Distribution Width 14.1 % (11.5-14.5); White Blood Count 11.1 K/mm3 (4.5-10.0)
[2023-01-06 16:15] LABS: Alanine Aminotransferase 23 U/L (6-35); Albumin Level 4.6 g/dL (3.5-5.1); Alkaline Phosphatase 104 U/L (38-126); Anion Gap 10 mmol/L (8-16); Aspartate Amino Transferase 32 U/L (14-36); Bilirubin,Total 0.9 mg/dL (0.2-1.3); Blood Urea Nitrogen 11 mg/dL (7-17); Calcium 9.3 mg/dL (8.4-10.2); Carbon Dioxide 26 mmol/L (22-30); Chloride 102 mmol/L (98-107); Estimated Glomerular Filt Rate > 60; Glucose 119 mg/dL (65-110); Lipase 14 U/L (23-300); Potassium 3.4 mmol/L (3.4-5.0); Sodium 138 mmol/L (137-145)
[2023-01-06 16:26] LABS: Troponin I 0.016 ng/mL (0.000-0.034)
[2023-01-06 18:49] VITALS: BP 162/74; PULSE 90; RESP 20; O2SAT 100
[2023-01-06] MEDS: MORPHINE SULFATE (*CRX) 4 MG/ML INJ IV PUSH ×2 (18:58→19:38)
[2023-01-06] MEDS: ONDANSETRON INJ 4 MG/2 ML VIAL IV PUSH (18:58)
[2023-01-06 19:01] LABS: Appearance Urine Clear (Clear); Bacteria Urine None Seen /hpf; Bilirubin Urine Negative (Negative); Blood Urine Negative (Negative); Color Urine Dark Yellow (Yellow); Glucose Urine UA Negative (Negative); Ketones Urine 3+ mg/dL (Negative); Leukocyte Esterase Ur Negative LEU/UL (Negative); Nitrate Urine Negative (Negative); Non Pathogenic Casts 0-2; Protein Urine 3+ mg/dL (Negative); RBC Urine 0-2 /hpf (0-2); Specific Grav Ur 1.027 (1.001-1.035); Squamous Epithelial Cell Urine None seen /hpf (Few); WBC Urine 0-5 /hpf; pH Urine 6.5 (5.0-9.0)
[2023-01-06 19:19] VITALS: BP 167/84; PULSE 85; RESP 18; TEMP 36.7; O2SAT 98
[2023-01-06 19:34] LABS: Add Urine Microscopic? YES
--- NOTE | 2023-01-06 19:36 | ED.GENADULT ---
HPI - General Adult General Chief complaint: Nausea/Vomiting/Diarrhea Stated complaint: N/V, RIGHT groin pain Time Seen by Provider: 01/06/23 18:03 Source: patient Mode of arrival: EMS Limitations: no limitations History of Present Illness HPI narrative: 77-year-old with a history of hypertension, anxiety disorder, chronic pain here with complaints of right-sided abdominal pain for past few days she also states that her right leg is shaking. Since this afternoon she is having more pain in the right groin area she also states that she was nauseated and vomited once. Patient states that she had a dark black color stool this afternoon. No previous history of diverticulosis or diverticulitis. She is not on any any anticoagulants. She also states that something is moving in the right side of the abdomen from pelvis to her chest she is presently on oxycodone and she states that the oxycodone is not helping. Her primary doctor is in [place]. Onset (ago): day(s) (4) Location: lower extremity Radiation: abdomen Severity: moderate Quality: aching Relieving factors: none Associated symptoms: nausea/vomiting Treatments prior to arrival: other (Oxycodone) Related Data Allergies Allergy/AdvReac Type Severity Reaction Status Date / Time No Known Allergies Allergy Verified 01/06/23 18:49 Review of Systems Review of Systems: All systems reviewed & are unremarkable except as noted in HPI and below Constitutional: Constitutional: Reports no additional constitutional complaints Eyes: Eyes: Reports no additional eye complaints ENT: Reports system reviewed and no additional complaints, except as documented Cardiovascular: Cardiovascular: Reports no additional cardiovascular complaints Respiratory: Respiratory: Reports no additional respiratory complaints Gastrointestinal: Gastrointestinal: Reports as per HPI and Reports melena Musculoskeletal: Musculoskeletal: Reports other (Right leg is shaking) Neurologic: Reports system reviewed and no additional complaints, except as documented Psychiatric: Psychiatric: Reports no additional psychiatric complaints Endocrine: Endocrine: Reports no additional endocrine complaints PMFSH Past Medical History Medical History Anxiety Depression Hypertension Surgical History Surgical History Hx of cholecystectomy Exam Narrative: GENERAL: Well-appearing, well-nourished, and in no acute distress. HEAD: Normocephalic, atraumatic. EYES: PERRLA and EOMI.. NECK: Supple. CHEST: Clear to auscultation. No respiratory distress. HEART: Regular rate and rhythm. No murmur heard. Normal peripheral pulses. ABDOMEN: Soft, nontender, nondistended, normal active bowel sounds. groin rash present Rectal black-colored stool however heme-negative EXTREMITIES: Normal range of motion. No edema. SKIN: Warm, dry, no rash. NEURO: No focal deficits. Alert and oriented x3. PSYCH: Normal mood and affect. Course Course Emergency Course: Patient complaining of right lower abdominal pain I did give her IV morphine and Zofran. Did CT of the abdomen and pelvis which was unremarkable her lab work is normal. Her stool is heme negative. I did discuss lab work and CT findings with the patient. Do not see any obvious reason why she is having pain on the right side I recommended her to continue oxycodone as prescribed by her doctor, follow-up with him in the next few days. Vital Signs Vital signs: Vital Signs Temperature 36.8 C 01/06/23 15:41 Pulse Rate 88 01/06/23 15:41 Respiratory Rate 19 01/06/23 15:41 Blood Pressure 176/83 H 01/06/23 15:41 Pulse Oximetry 95 01/06/23 15:41 Oxygen Delivery Room Air 01/06/23 15:41 Temperature 36.7 C 01/06/23 19:19 Pulse Rate 85 01/06/23 19:19 Respiratory Rate 18 01/06/23 19:19 Blood Pressure 167/84 H 01/06/23 19:19 Pulse Oximetry 98 04/0
[2023-01-06 20:15] VITALS: BP 167/73; PULSE 78; RESP 12; O2SAT 98
== END 2023-01-06 20:16 | disposition home or self-care (01) ==
PROVIDERS: Emergency Medicine; Emergency Provider Family Medicine
DX: R10.9 Unspecified abdominal pain (principal); I10 Essential (primary) hypertension
CPT/HCPCS: 36415; 74177; 80053; 81001; 83690; 84484; 85025; 93005; 96374; 96375; 96376; 99284; J2270; J2405; Q9967

== ENCOUNTER 2023-01-16 15:17 | Emergency (ER) | payer MEDICARE, SELFPAY ==
[2023-01-16 15:25] VITALS: BP 154/91; PULSE 93; RESP 18; TEMP 36.5; O2SAT 97
[2023-01-16 15:57] LABS: Basophils Percent Auto 0.4 % (0.2-1.2); Eosinophils Absolute Auto 0.1 K/mm3 (0-0.3); Eosinophils Percent Auto 1.6 % (0-4.4); Hematocrit 42.7 % (37.0-47.0); Hemoglobin 13.5 g/dL (12.0-15.0); Immature Granulocyte Absolute 0.02 K/mm3 (0.00-0.031); Immature Granulocyte Percent A 0.3 % (0-0.5); Lymphocytes Absolute Auto 2.17 K/mm3 (0.9-3.2); Lymphocytes Percent Auto 28.3 % (18.3-44.2); Mean Corpuscular HGB Conc 31.6 g/dl (32-36); Mean Corpuscular Hemoglobin 28.3 pg (26-34); Mean Corpuscular Volume 89.5 fl (80-100); Mean Platelet Volume 9.4 fl (7.4-10.4); Monocytes Absolute Auto 0.6 K/mm3 (0.1-0.6); Monocytes Percent Auto 7.2 % (2.6-8.5); Neutrophils Absolute Auto 4.8 K/mm3 (1.3-6.7); Neutrophils Percent Auto 62.2 % (45.5-73.1); Platelet Count Result 312 k/mm3 (150-375); Red Blood Count 4.77 M/mm3 (4.2-5.4); Red Cell Distribution Width 14.6 % (11.5-14.5); White Blood Count 7.7 K/mm3 (4.5-10.0)
[2023-01-16 16:32] LABS: Alanine Aminotransferase 31 U/L (6-35); Albumin Level 4.6 g/dL (3.5-5.1); Alkaline Phosphatase 94 U/L (38-126); Anion Gap 9 mmol/L (8-16); Aspartate Amino Transferase 37 U/L (14-36); Bilirubin,Total 0.8 mg/dL (0.2-1.3); Blood Urea Nitrogen 14 mg/dL (7-17); Calcium 9.1 mg/dL (8.4-10.2); Carbon Dioxide 28 mmol/L (22-30); Chloride 101 mmol/L (98-107); Estimated Glomerular Filt Rate > 60; Glucose 121 mg/dL (65-110); Potassium 3.9 mmol/L (3.4-5.0); Sodium 138 mmol/L (137-145)
--- NOTE | 2023-01-16 17:23 | ED.GENADULT ---
HPI - General Adult General Chief complaint: Unspecified Stated complaint: withdrawl for xanax Time Seen by Provider: 01/16/23 17:23 Source: patient Mode of arrival: ambulatory Limitations: no limitations History of Present Illness HPI narrative: Patient is a 77 y/o female who presents to the ED with c/o chronic pain. Patient reports having chronic pain in her right low back, right sciatic region, neck and shoulders. She has previously been prescribed oxycodone/acetaminophen 7.5 mg / 325 mg by her primary care doctor. Patient reports she has been taking excess pills to try to control the pain over the last few weeks. She was prescribed a 30-day supply of this on 12/28 and ran out on 01/09. She has not had any oxycodone since 01/09 and reports having significant pain to the point she is unable to sleep at night. She has been taking Tylenol, ibuprofen at home without much relief. She did experience nausea, vomiting, and shakiness last week which was attributed to likely withdrawal symptoms. Patient was seen at [facility] at that time and discharged home. Patient states her primary care doctor will no longer fill her prescriptions and she was referred to a neckties painter, but does not have an appt set up yet. Patient has seen pain management in the past and had steroid injections. She denies any recent injury or falls, fevers, persistent nausea or vomiting, numbness, incontinence of bowel or bladder, weakness. Patient ambulates with a walker. Related Data Allergies Allergy/AdvReac Type Severity Reaction Status Date / Time No Known Allergies Allergy Verified 01/06/23 18:49 Review of Systems Review of Systems: CONSTITUTIONAL: Denies fever, chills, or sweats. CARDIOVASCULAR: Denies chest pain. RESPIRATORY: Denies dyspnea. GASTROINTESTINAL: Denies abdominal pain, incontinence, nausea, vomiting, or diarrhea. GENITOURINARY: Denies incontinence, dysuria or hematuria. MUSCULOSKELETAL: See HPI. NEUROLOGIC: See HPI. All systems reviewed & are unremarkable except as noted in HPI and below PMFSH Past Medical History Medical History Anxiety Depression Hypertension Surgical History Surgical History Hx of cholecystectomy Social History Social History Smoking status: Never smoker Exam Narrative: GENERAL: Elderly, morbidly obese, non-toxic, in no acute distress. HEAD: Normocephalic, atraumatic. NECK: Supple. No adenopathy, no masses. RESPIRATORY: Airway patent, respirations nonlabored. Clear to auscultation bilaterally, no rales, rhonchi, wheezing. CARDIOVASCULAR: Regular rate and rhythm without murmurs, rubs, or gallops. Peripheral pulses 2+ and equal bilaterally. ABDOMINAL: Soft, nontender, nondistended, no hepatosplenomegaly. Normoactive BS. MUSCULOSKELETAL: Moves all extremities. Strength/ROM intact without gross deformities. Tenderness throughout right lumbosacral region, over SI joint. No significant midline spinal tenderness. No bony deformities or palpable step-offs. SKIN: Warm, dry, normal color. No rashes. NEURO: A&O X3. Speech clear. Cranial nerves II-XII grossly intact. No ataxic movements. PSYCHIATRIC: Anxious. Normal interaction. Course Vital Signs Vital signs: Vital Signs Temperature 97.7 F 01/16/23 15:25 Pulse Rate 93 01/16/23 15:25 Respiratory Rate 18 01/16/23 15:25 Blood Pressure 154/91 H 01/16/23 15:25 Pulse Oximetry 97 01/16/23 15:25 Oxygen Delivery Room Air 01/16/23 15:25 Temperature 97.7 F 01/16/23 15:25 Pulse Rate 87 01/16/23 20:06 Respiratory Rate 18 01/16/23 20:06 Blood Pressure 146/88 H 01/16/23 20:06 Pulse Oximetry 99 01/16/23 20:06 Oxygen Delivery Room Air 01/16/23 15:25 Medical Decision Making MDM Narrative Medical decision making narrative: Salome
[2023-01-16] MEDS: LIDOCAINE 5% PATCH 1 PATCH TRANSDERM (19:53)
[2023-01-16] MEDS: HYDROcodone/acetaminophen (*CRX) 5-325 MG TABLET 1 TAB PO (19:53)
[2023-01-16 20:06] VITALS: BP 146/88; PULSE 87; RESP 18; O2SAT 99
== END 2023-01-16 20:00 | disposition home or self-care (01) ==
PROVIDERS: Emergency Medicine; Emergency Provider Physician Assistant
DX: M54.41 Lumbago with sciatica, right side (principal); G89.29 Other chronic pain; I10 Essential (primary) hypertension; Z90.49 Acquired absence of other specified parts of digestive tract
CPT/HCPCS: 36415; 80053; 85025; 99283; A9270

== ENCOUNTER 2023-06-30 18:08 | Emergency (ER) | payer MEDICARE, SELFPAY ==
[2023-06-30] VITALS (21 sets, daily range): BP systolic 104–151; BP diastolic 70–133; PULSE 66–77; RESP 10–25; O2SAT 85–100
--- NOTE | ~2023-06-30 | CT_ITS ---
EXAMINATION: CT cervical spine wo con DATE: 06/30/2023 20:02 INDICATION: neck trauma TECHNIQUE: Computed tomography (CT) of the cervical spine was performed without intravenous contrast. Automated exposure control and iterative reconstruction technique were employed. The dose-length pro duct was 619.22 mGy-cm. COMPARISON: None. FINDINGS: Vertebral Body Alignment: 2 mm anterolisthesis at C3-4, presumably on a degenerative basis. Reversed lordosis, centered at C4 Craniocervical and atlantoaxial alignment: Moderate degenerative change. Alignment intact. Osseous structures/fracture: No evidence of a lytic or blastic process in the visualized spine. No e vidence of acute fracture. Cervical soft tissues: The paraspinal soft tissues planes are maintained. Degenerative changes: Multilevel severe degenerative disc disease. Multilevel facet arthropathy. No s evere central canal or neural foraminal narrowing. IMPRESSION: No acute fracture or traumatic malalignment in the cervical spine. Reviewed, dictated and finalized at location K.
--- NOTE | ~2023-06-30 | CT_ITS ---
EXAMINATION: CT brain wo con DATE: 06/30/2023 20:01 INDICATION: mental stauts . TECHNIQUE: Computed tomography (CT) of the head was performed without intravenous contrast. The mA wa s adjusted according to patient size. Iterative reconstruction technique was employed. The dose-lengt h product was 605.33 mGy-cm. COMPARISON: None. FINDINGS: No acute intracranial hemorrhage or extra-axial fluid collection. No hydrocephalus, mass, or herniation. No acute ischemic infarct. Unremarkable dural venous sinus attenuation. No acute osseous abnormality. Partial contrast opacification of the right maxillary sinus with surrounding osseous sclerosis and ca lcified internal debris, the remaining aerated spaces are clear. Moderate atrophy and severe chronic white matter change. Atherosclerotic intracranial calcification. 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 IMPRESSION: No acute intracranial process. Reviewed, dictated and finalized at location K.
--- NOTE | ~2023-06-30 | XR_ITS ---
EXAMINATION: XR chest 1V Exam Date/Time: 06/30/2023 19:59 CDT HISTORY: hypoxia Comparison: 06/07/2022. RESULT: Lines, tubes, and devices: None. Lungs and pleura: Low volumes with crowding. Streaky bibasilar scar/atelectasis. Cardiomediastinal silhouette: Stable. Other: No acute osseous or upper abdominal finding. IMPRESSION: No acute cardiopulmonary process. Reviewed, dictated and finalized at location K.
--- NOTE | 2023-06-30 18:15 | ECG_ITS ---
Measurements Intervals [place] Rate: 64 P: 50 [place]: 221 QRS: -1 QRSD: 82 T: 41 QT: 392 QTc: 407 Interpretive Statements SINUS RHYTHM WITH FIRST DEGREE AV BLOCK CONSIDER INFERIOR INFARCT, AGE INDETERMINATE BORDERLINE T WAVE ABNORMALITY- ANTERIOR LEADS ABNORMAL ECG COMPARED TO ECG 01/06/2023 15:29:33 FIRST DEGREE AV BLOCK NOW PRESENT Electronically Signed On 06-30-2023 20:39:10 CDT by Jose Eduardo Zeng D.O.
--- NOTE | 2023-06-30 18:32 | ED.AMS ---
HPI - Altered Mental Status General Chief Complaint: Altered Mental Status Stated Complaint: AMS Time Seen by Provider: 06/30/23 18:30 History of Present Illness HPI narrative: Patient is a 77-year-old female here with altered mental status. Her neighbor saw the patient today and had the ambulance called because she was not behaving like her normal self. Patient describes falling yesterday, does not give further details. She does note that she takes pain pills and did take them today. She notes she could not sleep last night, due to the pain pills. On EMS arrival, patient was hypoxic in the 80s and started on oxygen. She nods to taking chest pain but will not elaborate any further. Related Data Allergies Allergy/AdvReac Type Severity Reaction Status Date / Time No Known Allergies Allergy Verified 01/06/23 18:49 Review of Systems Review of Systems: ROS unobtainable: Yes unobtainable due to mental status PMFSH Past Medical History Medical History Anxiety Depression Hypertension Surgical History Surgical History Hx of cholecystectomy Social History Social History Smoking status: Never smoker Exam Narrative: GENERAL: Well-appearing, well-nourished HEAD: Normocephalic, atraumatic. EYES: 2mm pupils, EOMI. ENT: Nares clear. Mucous membranes moist. NECK: Supple. CHEST: Clear to auscultation. No respiratory distress. on 2L NC HEART: Regular rate and rhythm. Normal peripheral pulses. ABDOMEN: Soft, nontender, nondistended. EXTREMITIES: Normal range of motion. No edema. SKIN: Warm, dry, no rash. NEURO: No focal deficits. Drowsy but arousable to voice, oriented to self. . Course Course Emergency Course: Chart review performed. Here with new onset altered mental status per EMS. She was last seen here in January 2023 for chronic pain and overuse of her home pain medication. Triage vitals grossly normal, on 2L NC. Patient seen evaluated, she is drowsy but arousable and answers a few questions before falling back to sleep. Her pupils are small and given her history of opiate use and over taking medications this is likely might top differential diagnoses for her altered mental status and hypoxia. She does have a normal respiratory rate at this time, will hold on narcan for now. Will additionally to CT had an broad lab work for AMS including a cardiac workup and UA. Anticipate she will likely have to be admitted should her mental status not improve. Lab work reviewed, CBC within normal limits, CMP shows JARET, normal potassium, otherwise normal. UA negative for UTI. ETOH negative. Small dose of narcan given to patient, 0.05, with improvement of mental status and respiratory effort. Nursing spoke with daughter, daughter plans to lock up her medications and give controlled portions to avoid this in the future. Will give dose of IVF here and recheck creatinine to help make disposition decision. Will additionally monitor 2-3 hours for additional need for narcan. Imaging pending at this time. Imaging negative, COVID negative. Patient reevaluated, continues to be alert and oriented. Will do trial off of oxygen. Repeat BMP performed, improving creatinine with IVF. Will give second liter while we are continuing to observe. O2 saturation 100% off of oxygen. She continues to be awake, alert and oriented. The results of pertinent diagnostic studies and exam findings were discussed. The patient?s provisional diagnosis and plan of care were discussed with the patient and present family. The patient and/or present family expressed understanding of the diagnosis and plan. The nurse was instructed to provide written instructions and appropriate follow-up information. The patient understands their need and responsibility to obtain additional follow-u
[2023-06-30 18:57] LABS: Alanine Aminotransferase 15 U/L (6-35); Albumin Level 3.7 g/dL (3.5-5.1); Alkaline Phosphatase 95 U/L (38-126); Anion Gap 6 mmol/L (8-16); Aspartate Amino Transferase 28 U/L (14-36); Bilirubin,Total 0.6 mg/dL (0.2-1.3); Blood Urea Nitrogen 19 mg/dL (7-17); Calcium 8.7 mg/dL (8.4-10.2); Carbon Dioxide 25 mmol/L (22-30); Chloride 100 mmol/L (98-107); Estimated Glomerular Filt Rate 31; Glucose 97 mg/dL (65-110); Potassium 4.7 mmol/L (3.4-5.0); Sodium 131 mmol/L (137-145)
[2023-06-30 19:02] LABS: Appearance Urine Clear (Clear); Bilirubin Urine Negative (Negative); Blood Urine Negative (Negative); Color Urine Yellow (Yellow); Glucose Urine UA Negative (Negative); Ketones Urine Negative (Negative); Leukocyte Esterase Ur Negative LEU/UL (Negative); Nitrate Urine Negative (Negative); Protein Urine Negative (Negative); Specific Grav Ur 1.015 (1.001-1.035); Urobilinogen Urine 0.2 mg/dL (<2.0)
[2023-06-30 19:05] LABS: Basophils Percent Auto 0.3 % (0.2-1.2); Eosinophils Absolute Auto 0.2 K/mm3 (0-0.3); Hematocrit 36.7 % (37.0-47.0); Hemoglobin 11.5 g/dL (12.0-15.0); Immature Granulocyte Absolute 0.03 K/mm3 (0.00-0.031); Immature Granulocyte Percent A 0.3 % (0-0.5); Lymphocytes Absolute Auto 1.96 K/mm3 (0.9-3.2); Lymphocytes Percent Auto 22.6 % (18.3-44.2); Mean Corpuscular HGB Conc 31.3 g/dl (32-36); Mean Corpuscular Hemoglobin 28.5 pg (26-34); Mean Corpuscular Volume 91.1 fl (80-100); Mean Platelet Volume 9.5 fl (7.4-10.4); Monocytes Absolute Auto 0.6 K/mm3 (0.1-0.6); Monocytes Percent Auto 6.9 % (2.6-8.5); Neutrophils Absolute Auto 5.9 K/mm3 (1.3-6.7); Neutrophils Percent Auto 67.9 % (45.5-73.1); Platelet Count Result 229 k/mm3 (150-375); Red Blood Count 4.03 M/mm3 (4.2-5.4); Red Cell Distribution Width 13.8 % (11.5-14.5); White Blood Count 8.7 K/mm3 (4.5-10.0)
[2023-06-30 19:17] LABS: Ethanol < 10 mg/dL (<10)
[2023-06-30 19:22] LABS: Add Urine Microscopic? NO
[2023-06-30 19:25] LABS: Troponin I < 0.012 ng/mL (0.000-0.034)
[2023-06-30] MEDS: NALOXONE HCL 0.4 MG/ML VIAL 0.05 MG IV PUSH (19:37)
[2023-06-30 19:58] LABS: Partial Thromboplastin Time 34.4 SECONDS (22.3-36.8)
[2023-06-30] MEDS: SODIUM CHLORIDE 0.9% IV 1,000 ML 999 ML IV CONT ×2 (20:13→21:29)
[2023-06-30 20:21] LABS: SARS-CoV-2 RNA PCR Negative (Negative)
[2023-06-30 21:13] LABS: Anion Gap 5 mmol/L (8-16); Blood Urea Nitrogen 18 mg/dL (7-17); Calcium 8.2 mg/dL (8.4-10.2); Carbon Dioxide 23 mmol/L (22-30); Chloride 104 mmol/L (98-107); Estimated Glomerular Filt Rate 36; Glucose 97 mg/dL (65-110); Potassium 4.5 mmol/L (3.4-5.0); Sodium 132 mmol/L (137-145)
--- NOTE | 2023-06-30 22:18 | PC.NURSE ---
Patient able to stand up and get in to wheelchair with assistance of nurses. Patient sitting in wheelchair watching TV waiting for her daughter to arrive.
== END 2023-06-30 22:29 | disposition home or self-care (01) ==
PROVIDERS: Emergency Medicine; Emergency Provider Student in an Organized Health Care Education/Training Program
DX: T40.601A Poisoning by unspecified narcotics, accidental (unintentional), initial encounter (principal); G89.29 Other chronic pain; N17.9 Acute kidney failure, unspecified; Z20.822 Contact with and (suspected) exposure to COVID-19; I10 Essential (primary) hypertension; Z90.49 Acquired absence of other specified parts of digestive tract; I44.0 Atrioventricular block, first degree; R94.31 Abnormal electrocardiogram [ECG] [EKG]
CPT/HCPCS: 36415; 70450; 71045; 72125; 80048; 80053; 80307; 81003; 83735; 84484; 85025; 85610; 85730; 87635; 93005; 96361; 96374; 99284; J2310; J7030

== ENCOUNTER 2025-01-09 07:36 | Emergency (ER) | payer MEDICARE, SELFPAY ==
--- NOTE | ~2025-01-09 | CT_ITS ---
EXAMINATION: CT abdomen pelvis wo con DATE: 01/09/2025 09:01 INDICATION: Flank pain TECHNIQUE: Computed tomography (CT) of the abdomen and pelvis was performed without intravenous contr ast. Automated exposure control and iterative reconstruction technique were employed. The dose-length product was 544.71 mGy-cm. COMPARISON: 01/06/2023 FINDINGS: Lung bases are clear. Heart size is normal. No pericardial or pleural effusion. Gallbladder is again not visualized and likely surgically absent. Liver, spleen, bilateral adrenal glands and kidneys are normal. No urolithiasis or hydronephrosis. Mild to moderate fatty atrophy of the pancreas most promin ent at the head. Bowels are normal with no wall thickening or obstruction. The appendix is not visual ized. No pericecal inflammatory change to suggest acute appendicitis. Bladder, uterus and bilateral a dnexa are unremarkable with a few phleboliths in the pelvis and along the bilateral gonadal veins. No free intraperitoneal gas or fluid. No pathologically enlarged abdominal or pelvic lymphadenopathy. S mall fat-containing umbilical hernia. Mild focal lumbar dextrocurvature with mild lumbar and moderate to severe lower thoracic spondylosis. IMPRESSION: 1. No urolithiasis or acute intra-abdominal/pelvic process. Reviewed, dictated and finalized at location A.
[2025-01-09 07:40] VITALS: BP 101/73; PULSE 76; RESP 20; O2SAT 100
--- OUTSIDE RECORDS SUMMARY | 2025-01-09 07:56 | XMS_ITS | Encounter Summary ---
Author Organization [facility] Address [address] [place] [address] Care Team Providers Care Radiologic Electronic Specialist Name Role Phone Chelsey Michel PARADICHLOROBENZENE MACHINE OPERATOR Primary Care Provider [phone] Ruth Ann Damian PARADICHLOROBENZENE MACHINE OPERATOR Unavailable Ruth Ann Damian PARADICHLOROBENZENE MACHINE OPERATOR Primary Care Provider [phone] Amira Magallanes PARADICHLOROBENZENE MACHINE OPERATOR Unavailable Ricardo Mccray DO Unavailable Jefferson Mcdonald MD Unavailable [phone] Carmenza Montenegro PA-C Primary Care Provider + [phone] Jefferson Mcdonald MD Unavailable [phone] Allison Lobo Unavailable Encounter Details Date Type Department Care Team (Late st Contact Info) Description 12/20/2021 Prep for Procedure [facility] [place] [address] [id number] Lyndsay Trevino APNP [address] [place] [address] Social History Tobacco Use Types Packs/Day Years Used Date Smoking Tobacco: Never Smokeless Tobacco: Never Alcohol Use Standard Drinks/Week Comments Not Currently 0 (1 standard drink = 0.6 oz pur e alcohol) PHQ-2 Answer Date Recorded PHQ-2 Score - If the patient scores above 3, please move on to questions 3-9 1 11/15/2021 Education Answer Date Recorded What is the highest level of school you have completed or the highest degree you have received? High school graduate 12/20/2021 Comments No Sex and Gender Information Value Date Recorded Sex Assigned at Female 11/02/2024 1:14 PM INWEAVER Legal Sex Female 8:48 AM INWEAVER Gender Identity Not on file Sexual Orientation Not on file COVID-19 Exposure Response Date Recorded In the last 10 days, have yo u been in contact with someone who was confirmed or suspected to have Coronavirus/COVID-19? No / Unsure 12/21/2021 3:11 PM CDT documented as of this encounter Functional Status * RETIRED Are you deaf or do you have serious difficulty hearing Answer Date of Assessment Author Status No 11/23/2021 2:40 PM INWEAVER Activ e * RETIRED Are you blind or do you have serious difficulty seeing, even when wearing glasses? Answer Date of Assessment Author Status No 11/23/2021 2:40 PM INWEAVER Activ e * Do you have serious difficulty walking or climbing stairs? Answer Date of Assessment Author Status Yes 11/23/2021 2:40 PM Brie Fofana RN Active * Do you have difficulty dressing or bathing? Answer Date of Assessment Author Status Yes 11/23/2021 2:40 PM Brie Fofana RN Active * Because of a physical, mental, or emotional condition, do you have difficulty doing errands alone such as visiting a doctor's office or shopping? Answer Date of Assessment Author Status Yes 11/23/2021 2:40 PM Brie Fofana RN Active documented as of this encounter Mental Status * Because of a physical, mental, or emotional condition, do you have serious difficulty concentrating, remembering, or making decisions? Answer Entry Date Author Status No 11/23/2021 2:40 PM INWEAVER Ruiz, Brie K , RN Active documented in this encounter Plan of Treatment Upcoming Encounters Date Type Department Care Team (Late st Contact Info) Description 01/11/2025 10:30 AM CDT Appointment [address] [place] [address] Lenore Maciel RN documented as of this encounter Visit Diagnoses Diagnosis Abdominal pain- Primary Abdominal pain, unspecified site documented in this encounter Additional Health Concerns Assessment Noted Time PHQ-9 Depression Total Score: 1 11/15/19 11:08 AM INWEAVER documented as of this encounter Care Teams Radiologic Electronic Specialist Relationship Specialty Start Date End Date Chelsey Michel NP [address] [place] [address] PCP - General NURSE PRACTITIONER 10/12/21 01/02/22 Ruth Ann Damian NP [address] [place] [address] PCP - General Nurse Practitioner Family 01/03/22 06/13/22 Carmenza Montenegro PA-C [address] [place] [address] PCP - General PHYSICIAN SAFETY PROFESSIONAL 06/14/22 Allison Lobo APNP [address] [place], [place] [address] PCP - Hospice Attending 01/18/23 03/03/24 Ruth Ann Damian NP [address] [place] [address] Nurse Practitioner Nurse Practitioner Family 01/02/2202/08 Amira Magallanes NP [address] [place] [address] Nurse Practitioner NURSE PRACTITIONER 01/03/22 Ricardo Mccray DO [address] [place] [address] Consulting Physician INTERNAL MEDICINE 01/03/22 Jefferson Mcdonald MD [address] [place] [address] Physician NEUROMUSCULOSKELETAL MEDICINE 02/09/2201/08/23 Jefferson Mcdonald MD [address] [facility] [address] [place] [address] Physician NEUROMUSCULOSKELETAL MEDICINE 06/23/22 documented as of this encounter
--- OUTSIDE RECORDS SUMMARY | 2025-01-09 07:56 | XMS_ITS | Encounter Summary ---
Author Organization [facility] Address [address] [place] [address] Care Team Providers Care General Repairer Name Role Phone Amira Magallanes LABORER [employer] Unavailable [phone] Ricardo Mccray DO Unavailable Carmenza Montenegro PA-C Primary Care Provider [phone] Jefferson Mcdonald MD Unavailable [phone] Reason for Visit * Reason Onset Date Comments Advise 01/07/2025 Encounter Details Date Type Department Care Team (Late st Contact Info) Description 01/07/2025 Telephone [facility] Home Care/H[facility]ice [place] Scheduling [address] [place] [address] Carmenza Montenegro PA-C [address] [facility] [address] [place], [place] [id number] Advise Social History Tobacco Use Types Packs/Day Years Used Date Smoking Tobacco: Never Passive Smoke Exposure: Never Smokeless Tobacco: Never Alcohol Use Standard Drinks/Week Comments Not Currently 0 (1 standard drink = 0.6 oz pur e alcohol) OASIS D0700: Social Isolation Answer Da te Recorded Frequency of experiencing loneliness or isolatio n Never 03/20/2023 OASIS A1250: Transportation Answer Date Recorded Lack of Transportation (Medical) No 03/20/2023 Lack of Transportation (Non-Medical) No 03/20/2023 Patient Unable or Declines to Respond No 03/20/2023 OASIS B1300: Health Literacy Answer Shay e Recorded Frequency of needing help to read materials from doctor or pharmacy Sometimes 03/20/2023 PHQ-2 Answer Date Recorded Patient Health Questionnaire-2 Score 0 11/02/2024 Education Answer Date Recorded What is the highest level of school you have completed or the highest degree you have received? High school graduate 12/20/2021 Comments No Sex and Gender Information Value Date Recorded Sex Assigned at Female 11/02/2024 1:14 PM BAILIFF Legal Sex Female 8:48 AM BAILIFF Gender Identity Not on file Sexual Orientation Not on file documented as of this encounter Functional Status * RETIRED Are you deaf or do you have serious difficulty hearing Answer Date of Assessment Author Status No 11/23/2021 2:40 PM BAILIFF Activ e * RETIRED Are you blind or do you have serious difficulty seeing, even when wearing glasses? Answer Date of Assessment Author Status No 11/23/2021 2:40 PM BAILIFF Activ e * Do you have serious difficulty walking or climbing stairs? Answer Date of Assessment Author Status Yes 11/23/2021 2:40 PM BAILIFF Brie Ruiz RN Active * Do you have difficulty dressing or bathing? Answer Date of Assessment Author Status Yes 11/23/2021 2:40 PM BAILIFF Brie Ruiz RN Active * Because of a physical, mental, or emotional condition, do you have difficulty doing errands alone such as visiting a doctor's office or shopping? Answer Date of Assessment Author Status Yes 11/23/2021 2:40 PM BAILIFF Brie Ruiz RN Active documented as of this encounter Mental Status * Because of a physical, mental, or emotional condition, do you have serious difficulty concentrating, remembering, or making decisions? Answer Entry Date Author Status No 11/23/2021 2:40 PM BAILIFF Brie Ruiz RN Active documented in this encounter Progress Notes * Neyda Reid MA - 01/07/2025 1:06 PM CDT Noted. * Sylvia Moralesuart - 01/07/2025 1:03 PM CDTSummary: home health Hello, We received the home health referral for Barabara. We will accept and add Barabara to our schedule.We do have up to a 3 day delay in start of care at this time. If we are able to see Barabara soonerwe will. Thank you Sylvia [facility] Home Care documented in this encounter Plan of Treatment Upcoming Encounters Date Type Department Care Team (Late st Contact Info) Description 01/11/2025 10:30 AM CDT Appointment [facility] Home Care [address] [place] [address] Lenore Maciel, RN documented as of this encounter Visit Diagnoses Not on filedocumented in this encounter Additional Health Concerns Assessment Noted Time PHQ-9 Depression Total Score: 15 024 1:31 PM CDT documented as of this encounter Care Teams General Repairer Relationship Specialty Start Date End Date Carmenza Montenegro PA-C [address] [place] [address] PCP - General PHYSICIAN NYLON WINDER 06/14/22 Amira Magallanes NP Nurse Practitioner NURSE PRACTITIONER 01/03/22 Ricardo Mccray DO Consulting Physician INTERNAL MEDICINE 01/03/22 Jefferson Mcdonald MD [address] [facility] [address] [place] [address] Physician NEUROMUSCULOSKELETAL MEDICINE 06/23/22 documented as of this encounter
--- OUTSIDE RECORDS SUMMARY | 2025-01-09 07:56 | XMS_ITS | Clinical Summary ---
Author Organization [facility] Address [address] [place] [address] Care Team Providers Care Whiskey Regauger Name Role Phone Amira Magallanes DIABETES EDUCATOR Unavailable [phone] Ricardo Mccray DO Unavailable Carmenza Lloyd PA-C Primary Care Provider [phone] Jefferson Mcdonald MD Unavailable [phone] Allergies Active Allergy Reactions Criticality Noted Date Comments Amlodipine Other (see comment) 02/11/2023 Lower extremity edema. Hydrochlorothiazide Other (see comment) 024 Frequent urination. Nifedipine Swelling 08/06/2024 Oxycodone-Acetaminophen Hallucinations 02/17/20 24 Medications * This document contains information received from the source organization and may not represent a complete record from that organization. albuterol (PROVENTIL) (2.5 MG/3ML) 0.083% nebulizer solutionIndicatio ns:Wheeze 1 vial via nebulizer qid x 5 day(s), then as needed . Please dispense nebulizer and nebulizer supplies 360 mL 023 Active Cyanocobalamin (B-12) 1000 MCG Tab CRIndications:Sup plement Take 1 tablet by mouth daily. 90 tablet 3 023 Active pantoprazole EC (PROTONIX) 20 MG tabletIndications :Gastroesophageal reflux disease, unspecified whether esophagitis present take 1 tablet by mouth every morning 30 tablet Active levothyroxine (SYNTHROID) 75 MCG tabletIndications :Acquired hypothyroidism TAKE 1 TABLET(75 MCG) BY MOUTH DAILY FOR THYROID 30 tablet Active DULoxetine (CYMBALTA) 60 MG capsuleIndication s:Depression Take 1 capsule (60 mg total) by mouth daily. Indications: Depression 90 capsule 3 024 Active donepezil (ARICEPT) 5 MG TabIndications:Mi ld late onset Alzheimer's dementia without behavioral disturbance, psychotic disturbance, mood disturbance, or anxiety (CMS/HCC) Take 1 tablet (5 mg total) by mouth nightly at bedtime. 30 tablet 024 Active diclofenac sodium (VOLTAREN) 1 % gelIndications:Pa in Apply 2 g topically 4 (four) times daily. Indications: Pain 50 g 1 024 Active folic acid (FOLVITE) 1 MG tabletIndications :Folic acid deficiency Take 1 tablet (1 mg total) by mouth daily. 30 tablet 11 024 Active topiramate (TOPAMAX) 50 MG TabIndications:Im paired fasting glucose,Morbid obesity (CMS/HCC) TAKE 1 TABLET(50 MG) BY MOUTH TWICE DAILY 180 tablet 1 024 Active pregabalin (LYRICA) 100 MG capsuleIndication s:Chronic pain of both knees Take 1 capsule (100 mg total) by mouth 3 (three) times daily. For pain 90 capsule 3 Active cetirizine (ZYRTEC) 10 MG tabletIndications :Allergic rhinitis, unspecified seasonality, unspecified trigger Take 1 tablet (10 mg total) by mouth daily. Active ketorolac (ACULAR) 0.5 % ophthalmic solution Active ofloxacin (OCUFLOX) 0.3 % ophthalmic solution Active prednisoLONE acetate (PRED FORTE) 1 % ophthalmic suspension Active tirzepatide (ZEPBOUND) 5 MG/0.5ML injectionIndicati ons:Weight Loss Inject 5 mg into the skin once a week. Indications: Weight Loss 5 mg vial. , [facility]: [id number] 2 mL 11 024 Active doxepin (SINEQUAN) 25 MG capsuleIndication s:Primary insomnia Take 1 capsule (25 mg total) by mouth nightly at bedtime. 90 capsule 3 024 Active lisinopril (PRINIVIL) 40 MG tabletIndications :Primary hypertension Take 1 tablet (40 mg total) by mouth daily. 30 tablet 11 024 Active rosuvastatin (CRESTOR) 5 MG tabletIndications :Mixed hyperlipidemia TAKE 1 TABLET(5 MG) BY MOUTH DAILY FOR HIGH AMOUNT OF FATS IN THE BLOOD 30 tablet 11 024 Active montelukast (SINGULAIR) 10 MG tabletIndications :Allergic rhinitis, unspecified seasonality, unspecified trigger TAKE 1 TABLET(10 MG) BY MOUTH EVERY NIGHT AT BEDTIME 30 tablet 1 024 Active rOPINIRole (REQUIP) 0.25 MG tabletIndications :RLS (restless legs syndrome) TAKE 1 TABLET(0.25 MG) BY MOUTH EVERY NIGHT AT BEDTIME 90 tablet 1 025 Active spironolactone (ALDACTONE) 50 MG tabletIndications :Primary hypertension TAKE 1 TABLET(50 MG) BY MOUTH DAILY 90 tablet 025 Active azithromycin (ZITHROMAX) 250 MG tabletIndications :Pneumonia due to infectious organism, unspecified laterality, unspecified part of lung Take 2 tablets by mouth on day one then 1 daily for four days. 6 tablet 025 Active hydroCHLOROthiazi de (HYDRODIURIL) 25 MG tabletIndications :Primary hypertension TAKE 1 TABLET(25 MG) BY MOUTH EVERY MORNING 90 tablet 025 Active buPROPion XL (WELLBUTRIN XL) 300 MG 24 hr tabletIndications :Anxiety,Mild episode of recurrent major depressive disorder TAKE 1 TABLET BY MOUTH EVERY DAY WITH 150MG FOR TOTAL DAILY DOSE OF 450MG 90 tablet 1 025 Active buPROPion XL (WELLBUTRIN XL) 150 MG 24 hr tabletIndications :Anxiety,Mild episode of recurrent major depressive disorder TAKE 1 TABLET BY MOUTH EVERY DAY ALONG WITH 300MG FOR TOTAL DAILY DOSE OF 450MG 90 tablet 1 025 Active buPROPion XL (WELLBUTRIN XL) 300 MG 24 hr tabletIndications :Anxiety,Mild episode of recurrent major depressive disorder Take 1 tablet (300 mg total) by mouth daily. With 150 mg daily for total of 450 mg daily 90 tablet 3 024 2024 Discontinued buPROPion XL (WELLBUTRIN XL) 150 MG 24 hr tabletIndications :Anxiety,Mild episode of recurrent major depressive disorder TAKE 1 TABLET BY MOUTH EVERY DAY ALONG WITH 300MG FOR TOTAL DAILY DOSE OF 450MG 90 tablet 1 024 2024 Discontinued(R eogerald) Active Problems Problem Noted Date Diagnosed Date Morbid obesity 07/22/2023 Impaired fasting glucose 02/11/2023 Alzheimer's dementia 10/07/2022 Insomnia 06/23/2022 Cervical radiculopathy 01/04/2022 Lumbar radiculopathy 01/04/2022 Gastroesophageal reflux dise ase, unspecified whether esophagitis present 01/04/2022 Restless leg 10/19/2021 Chronic pain of both knees 10/19/2021 Bilateral lower extremity edema 10/19/2021 Mixed hyperlipidemia 10/19/2021 Hypothyroidism, unspecified type 10/19/2021 Hypertension Depression Anxiety Resolved Problems Problem Noted Date Diagnosed Date Resolved Date Renal cyst 01/01/2022 06/23/2022 Hypertension, unspecified type 10/19/2021 01/04/2022 Disease of thyroid gland Encounters Date Type Department Care Team Description 01/07/2025 Telephone [facility] Home Care/[facility] [place] Scheduling [address] [facility] [address] [place] [id number] Carmenza Lloyd PA-C Advise 01/04/[address] [address] Carmenza Lloyd PA-C Question 12/21/[address] [address] Carmenza Lloyd PA-C FYI 12/04/[address] [address] Carmenza Lloyd PA-C Information 11/09/[address] [address] Carmenza Lloyd PA-C Medication Request 11/03/[address] [address] Carmenza Lloyd PA-C Results (CXR) 11/02/2024 2:05 PM TRIAL EXAMINER - 11/02/2024 11:59 PM TRIAL EXAMINER Hospital Encounter [facility] [address] [place] [address] Carmenza Lloyd PA-C Discharge Disposition: Home or Self Care (Routine Discharge) 11/02/2024 1:40 PM TRIAL EXAMINER Office Visit [address] [address] Carmenza Lloyd PA-C Follow Up (meds) 11/02/2024 Travel 10/30/[address] [address] Carmenza Lloyd PA-C Refill Request 10/26/[address] [address] Carmenza Lloyd PA-C FYI from Last 3 Months Immunizations Name Administration Dates Next Due Tdap (Generic) 07/31/2021 Family History Medical History Relation Comments Hypertension Daughter Mental Health Daughter Aneurysm Father Alcohol Abuse Mother COPD Mother Diabetes Mother Stroke Mother COPD Sister Relation Status Comments Daughter Father Mother Sister Alive Social History Tobacco Use Types Packs/Day Years Used Date Smoking Tobacco: Never Passive Smoke Exposure: Never Smokeless Tobacco: Never Tobacco Cessation:Counseling Given: No Alcohol Use Standard Drinks/Week Comments Not Currently [...] Sex Assigned at Female 11/02/2024 1:14 PM TRIAL EXAMINER Legal Sex Female 8:48 AM TRIAL EXAMINER Gender Identity Not on file Sexual Orientation Not on file Last Filed Vital Signs Vital Sign Reading Time Taken Comments Blood Pressure 155/81 11/02/2024 1:44 PM TRIAL EXAMINER Pulse 72 11/02/2024 1:44 PM TRIAL EXAMINER Temperature 37.2 C (98.9 F) 11/02/2024 1:33 PM TRIAL EXAMINER Respiratory Rate 24 11/02/2024 1:33 PM TRIAL EXAMINER Oxygen Saturation 100% 11/02/2024 1:33 PM TRIAL EXAMINER Inhaled Oxygen Concentration - - Weight 100.7 kg (222 lb) 11/02/2024 1:33 PM TRIAL EXAMINER Height 149.9 cm (4' 11 ) 11/02/2024 1:33 PM TRIAL EXAMINER Body Mass Index 44.84 11/02/2024 1:33 PM TRIAL EXAMINER Plan of Treatment Upcoming Encounters Date Type Department Care Team (Late st Contact Info) Description 01/11/2025 10:30 AM CDT Appointment [facility] [place] [address] Lenore Maciel, RN Health Maintenance Due Date Last Done Comments Annual Medicare Wellness Visit 2009 Dexa Scan (General) 2009 COVID-19 Vaccine ( - 2023-2 5 season) 2024 RSV Immunization or 60+ Years (1 - 1-dose 75+ series) 05/04/2025 Postponed from 2019 (Patient Refused) Zoster Vaccines (1 of 2) 05/04/2025 Pos tponed from 1994 (Patient Refused) Pneumococcal Vaccine: 65+ Ye ars (1 of 1 - PCV) 05/17/2025 Postponed from 08/02 (Patient Refused) DTaP, Tdap and Td Vaccines ( 2 - Td or Tdap) 07/31/2031 07/31/2021 PHQ-2 (Physician [place]) Completed 11/02/2024 Meningococcal B Vaccine Aged Out No l onger eligible based on patient's age to complete this topic Meningococcal Vaccine Aged Out No henrik jose eligible based on patient's age to complete this topic RSV Immunizations Under 20 Months Aged Out No longer eligible based on patient's age to complete this topic Procedures Procedure Name Priority Date/Time Associated Diagnosis Comments XR CHEST PA+LAT Routine 11/02/2024 2:27 PM TRIAL EXAMINER Pneumonia due to infectious organism, unspecified laterality, unspecified part of lung from Last 3 Months Results * XR CHEST PA+LAT (11/02/2024 2:27 PM TRIAL EXAMINER) Anatomical Region Laterality Modality Chest Radiographic Nani ging 11/02/2024 2:48 PM TRIAL EXAMINER Impressions 11/02/2024 2:52 PM TRIAL EXAMINER =====IMPRESSION:===== No acute findings. Ordered By: CARMENZA LLOYD Interpreted By: Nicolas Mijares, 11/02/2024 2:48 PM Narrative 11/02/2024 2:52 PM TRIAL EXAMINER [address] [address] EXAMINATION: PA AND LATERAL CHEST Exam date/time: 11/02/2024 2:20 PM Reason For Exam: pneumonia Cough Comparison: 07/20/2024 Technique: 2 views. Findings: Heart size normal. Proximal airways unremarkable. No suspicious pulmonary lesion, pneumothorax, or pleural effusion. Atherosclerosis. Scattered degenerative disc disease. Procedure Note Nicolas Mijares MD - 11/02/2024 [id number] [place] [address] EXAMINATION: PA AND LATERAL CHEST Exam date/time: 11/02/2024 2:20 PM Reason For Exam: pneumonia Cough Comparison: 07/20/2024 Technique: 2 views. Findings: Heart size normal. Proximal airways unremarkable. No suspiciouspulmonary lesion, pneumothorax, or pleural effusion. Atherosclerosis. Scattered degenerative disc disease. =====IMPRESSION:===== No acute findings. Ordered By: CARMENZA LLOYD Interpreted By: Nicolas Mijares, 11/02/2024 2:48 PM us Carmenza [facility] Final Resu lt from Last 3 Months Insurance MEDICARE MEDICAID Advance Directives * Full Code (Latest Code Status on File) Date Activated Date Inactivated Comments 01/21/2023 10:46 PM * Full Code Date Activated Date Inactivated Comments 12/06/2021 6:18 PM 01/10/2022 11:15 AM * POLST Date Activated Date Inactivated Comments 11/23/2021 2:10 PM 11/27/2021 7:52 PM Question Answer Comments Cardiopulmonary Resuscitatio n (CPR) If patient has no pulse and is not breathing: ATTEMPT Resuscitation CPR Medical Interventions when N OT in Cardiopulmonary Arrest (If patient is found with a pulse and/or is breathing): Selective Treatment - Do NOT Intubate DNI Documentation of discussion: Patient * Full Code Date Activated Date Inactivated Comments 10/31/2021 11:33 AM 11/22/2021 12:01 PM Care Teams Whiskey Regauger Relationship Specialty Start Date End Date Carmenza Lloyd PA-C [address] [place] [address] PCP - General PHYSICIAN INFANTRY OFFICER 06/14/22 Amira Magallanes NP Nurse Practitioner NURSE PRACTITIONER 01/03/22 Ricardo Mccray DO Consulting Physician INTERNAL MEDICINE 01/03/22 Jefferson Mcdonald MD [address] [facility] [address] [place] [address] Physician NEUROMUSCULOSKELETAL MEDICINE 06/23/22
[2025-01-09 08:07] LABS: Basophils Percent Auto 0.4 % (0.2-1.2); Eosinophils Absolute Auto 0.2 K/mm3 (0-0.3); Eosinophils Percent Auto 2.8 % (0-4.4); Hematocrit 32.2 % (37.0-47.0); Hemoglobin 10.3 g/dL (12.0-15.0); Immature Granulocyte Absolute 0.03 K/mm3 (0.00-0.031); Immature Granulocyte Percent A 0.4 % (0-0.5); Lymphocytes Absolute Auto 1.44 K/mm3 (0.9-3.2); Lymphocytes Percent Auto 19.9 % (18.3-44.2); Mean Corpuscular Hemoglobin 28.5 pg (26-34); Mean Corpuscular Volume 89.2 fl (80-100); Mean Platelet Volume 9.7 fl (7.4-10.4); Monocytes Absolute Auto 0.5 K/mm3 (0.1-0.6); Monocytes Percent Auto 7.3 % (2.6-8.5); Neutrophils Percent Auto 69.2 % (45.5-73.1); Platelet Count Result 257 k/mm3 (150-375); Red Blood Count 3.61 M/mm3 (4.2-5.4); White Blood Count 7.2 K/mm3 (4.5-10.0)
[2025-01-09 08:16] LABS: Alanine Aminotransferase 19 U/L (6-35); Alkaline Phosphatase 89 U/L (38-126); Anion Gap 7 mmol/L (4-12); Aspartate Amino Transferase 24 U/L (14-36); Bilirubin,Total 0.5 mg/dL (0.2-1.3); Blood Urea Nitrogen 12 mg/dL (7-17); Calcium 8.9 mg/dL (8.4-10.2); Carbon Dioxide 28 mmol/L (22-30); Chloride 100 mmol/L (98-107); Estimated Glomerular Filt Rate > 60; Glucose 121 mg/dL (65-110); Potassium 4.1 mmol/L (3.4-5.0); Sodium 135 mmol/L (137-145)
[2025-01-09 08:25] LABS: NT Pro B Type Natriuretic Pept 471 pg/mL (19.9-100)
[2025-01-09 08:26] LABS: INR 0.9; Prothrombin Time 12.9 Seconds (11.1-14.7)
--- NOTE | 2025-01-09 09:05 | PC.NURSE ---
pt refused a bed chamberlain, purwick, and bedside commode. pt wanted to walk to the restroom. this RN asked the pt if she walked at home and pt said only a few steps at a time. this RN wheeled the pt to the restroom in a wheelchair
[2025-01-09 09:16] VITALS: BP 149/86; PULSE 69; RESP 24; O2SAT 97
--- NOTE | 2025-01-09 09:33 | ED_ITS ---
HPI - General Adult General Chief complaint: Abdominal Pain Stated complaint: right flank pain, diarrhea, bilat leg redness Time Seen by Provider: 01/09/25 07:38 Source: patient Mode of arrival: EMS Limitations: no limitations History of Present Illness HPI narrative: [age] with a history of hypertension, anxiety disorder was brought in from home by EMS with a complains of right flank pain, bilateral leg swelling. Patient states that she fell 4 weeks ago and however at home since last night she has been having pain in the right flank area and having difficulty in walking because of the pain. She states that her legs are swollen and she thinks it could be infection in the legs. She denies any history of fevers or chills no previous history of cellulitis or DVT. Related Data Allergies Allergy/AdvReac Type Severity Reaction Status Date / Time No Known Allergies Allergy Verified 01/06/23 18:49 Review of Systems 2 Review of Systems: All systems reviewed & are unremarkable except as noted in HPI and below Constitutional: Constitutional: Reports no additional constitutional complaints Eyes: Eyes: Reports no additional eye complaints ENT: Reports system reviewed and no additional complaints, except as documented Cardiovascular: Cardiovascular: Reports no additional cardiovascular complaints Respiratory: Respiratory: Reports no additional respiratory complaints Gastrointestinal: Gastrointestinal: Reports no additional gastrointestinal complaints Musculoskeletal: Musculoskeletal: Reports as per HPI Neurologic: Reports system reviewed and no additional complaints, except as documented PMFSH Past Medical History Medical History Depression Anxiety Hypertension Surgical History Surgical History Hx of cholecystectomy Social History Social History Smoking status: Never smoker Exam 2 Narrative: GENERAL: Well-appearing, well-nourished, and in no acute distress. HEAD: Normocephalic, atraumatic. EYES: PERRLA and EOMI. ENT: Nares clear, no rhinorrhea or epistaxis. Mucous membranes moist. NECK: Supple. CHEST: Clear to auscultation. No respiratory distress. HEART: Regular rate and rhythm. No murmur heard. Normal peripheral pulses. ABDOMEN: Soft, nontender, nondistended, normal active bowel sounds. EXTREMITIES: Normal range of motion. has 1+ edema , no evidence of cellulitis SKIN: Warm, dry, no rash. NEURO: No focal deficits. Alert and oriented x3. PSYCH: Normal mood and affect. Course Course Emergency Course: Informed patient about lab work. And CT findings. Cause of her pain improves be more musculoskeletal from our back. Advised her to take pain medication as prescribed. Also recommended her to follow up with primary doctor . Vital Signs Vital signs: Vital Signs Pulse Rate 76 01/09/25 07:40 Respiratory Rate 20 01/09/25 07:40 Blood Pressure 101/73 01/09/25 07:40 Pulse Oximetry 100 01/09/25 07:40 Oxygen Delivery Room Air 01/09/25 07:40 Pulse Rate 76 01/09/25 07:40 Respiratory Rate 20 01/09/25 07:40 Blood Pressure 101/73 01/09/25 07:40 Pulse Oximetry 100 01/09/25 07:40 Oxygen Delivery Room Air 01/09/25 07:40 Medical Decision Making Differential Diagnosis Differential Diagnosis: UTI, pyelonephritis, kidney stone, DJD of the lumbar spine Vital Signs Vital Signs: Vital Signs Pulse Rate 76 01/09/25 07:40 Respiratory Rate 20 01/09/25 07:40 Blood Pressure 101/73 01/09/25 07:40 Pulse Oximetry 100 01/09/25 07:40 Oxygen Delivery Room Air 01/09/25 07:40 Pulse Rate 76 01/09/25 07:40 Respiratory Rate 20 01/09/25 07:40 Blood Pressure 101/73 01/09/25 07:40 Pulse Oximetry 100 01/09/25 07:40 Oxygen Delivery Room Air 01/09/25 07:40 Lab Data Lab results reviewed: Yes I reviewed the patient's lab results. 01/09/25 07:57 01/09/25 07:57 Labs: Lab Results 01/09/25 01/09/25 Range/Units 07:57 07:57 WBC 7.2 (4.5-10.0) K/mm3 RBC 3.61 L (4.2-5.4) M/mm3 Hgb 10.3 L (12.0-15.0) g/dL Hct 32.2 L (37.0-47.0) % MCV 89.2 (80-100) fl MCH 28.5 (26-34) pg MCHC 32.0 (32-36) g/dl RDW 15.0 H (11.5-14.5) % Plt Count 257 (150-375) k/mm3 MPV 9.7 (7.4-10.4) fl Immature Gran % (Auto) 0.4 (0-0.5) % Neut % (Auto) 69.2 (45.5-73.1) % Lymph % (Auto) 19.9 (18.3-44.2) % [place] % (Auto) 7.3 (2.6-8.5) % Eos % (Auto) 2.8 (0-4.4) % Baso % (Auto) 0.4 (0.2-1.2) % Lymph # (Auto) 1.44 (0.9-3.2) K/mm3 [place] # (Auto) 0.5 (0.1-0.6) K/mm3 Eos # (Auto) 0.2 (0-0.3) K/mm3 Baso # (Auto) 0.0 (0.0-0.1) K/mm3 Abs Immat Gran (auto) 0.03 (0.00-0.031) K/mm3 Absolute Neuts (auto) 5.0 (1.3-6.7) K/mm3 Absolute Nucleated RBC 0.000 (0.0-0.012) K/mm3 Nucleated RBC % 0.0 (0.0-0.2) % PT 12.9 (11.1-14.7) Seconds INR 0.9 Sodium 135 L (137-145) mmol/L Potassium 4.1 (3.4-5.0) mmol/L Chloride 100 (98-107) mmol/L Carbon Dioxide 28 (22-30) mmol/L Anion Gap 7 (4-12) mmol/L BUN 12 D (7-17) mg/dL Creatinine 0.78 (0.7-1.0) mg/dL Estim Creat Clear Calc Not Reportable Estimated GFR > 60 (59 - ) Glucose 121 H (65-110) mg/dL Calcium 8.9 (8.4-10.2) mg/dL Total Bilirubin 0.5 (0.2-1.3) mg/dL AST 24 (14-36) U/L ALT 19 (6-35) U/L Alkaline Phosphatase 89 (38-126) U/L NT-Pro-B Natriuret Pep 471 H Cancelled (19.9-100) pg/mL Total Protein 7.0 (6.3-8.2) g/dL Albumin 4.0 (3.5-5.1) g/dL Imaging Data Radiologist's impression: ITS Impressions Abdomen/Pelvis CT 01/09/25 09:12 IMPRESSION: 1. No urolithiasis or acute intra-abdominal/pelvic process. Discharge Plan Discharge Clinical Impression: Back pain Qualifiers: Back pain location: back pain in other location Chronicity: acute Qualified Code(s): M54.89 - Other dorsalgia Patient Disposition: Home, Self-Care Condition: Stable Instructions: Back Pain (ED) Patient Language: Jamaican Prescriptions: New hydrocodone-acetaminophen 5-325 mg tablet 1 tablet PO Q6H PRN (Reason: pain) Qty: 14 0RF No Action nitrofurantoin monohyd/m-cryst [Macrobid] 100 mg capsule 100 mg PO Q12H 5 Days Qty: 10 0RF Rx Instructions: must administer with a meal/food ondansetron 4 mg tablet,disintegrating 4 mg PO Q6-8H PRN (Reason: nausea and vomiting) Qty: 14 0RF oxycodone-acetaminophen 7.5-325 mg tablet 1 tablet PO BID PRN (Reason: pain) Qty: 6 0RF ibuprofen 800 mg tablet 800 mg PO TID PRN (Reason: pain) Qty: 20 0RF cyclobenzaprine 5 mg tablet 5 mg PO TID PRN (Reason: muscle spasm) Qty: 14 0RF naloxone [Narcan] 4 mg/actuation spray,non-aerosol 4 mg intranasal Q3M PRN (Reason: opioid overdose) Qty: 2 0RF Rx Instructions: spray 1 dose into ONE nostril; alternate nostrils w each dose until help arrives Follow-up/Referrals: Javier Lui MD [Physician] - PHYSICIAN NOT ON STAFF,NONSTAFF [Primary Care Provider] - Time of Disposition: 10:06
--- NOTE | 2025-01-09 09:40 | PC.NURSE ---
EDP gave verbal order for 1 hydrocodone pill for the pt
[2025-01-09] MEDS: HYDROcodone/acetaminophen (*CRX) 5-325 MG TABLET 1 TAB PO (09:55)
[2025-01-09 09:58] VITALS: BP 135/105; PULSE 74; RESP 16; O2SAT 99
[2025-01-09 10:50] VITALS: BP 157/74; PULSE 64; RESP 20; O2SAT 99
== END 2025-01-09 10:51 | disposition home or self-care (01) ==
PROVIDERS: Emergency Provider Family Medicine
DX: M54.9 Dorsalgia, unspecified (principal); I10 Essential (primary) hypertension
CPT/HCPCS: 36415; 74176; 80053; 83880; 85025; 85610; 99284; A9270

== ENCOUNTER 2025-01-13 03:21 | Emergency (ER) | payer MEDICARE, SELFPAY ==
[2025-01-13 03:18] VITALS: BP 184/79; PULSE 76; RESP 20; TEMP 36.6; O2SAT 98
[2025-01-13] MEDS: ACETAMINOPHEN 500 MG TABLET 1000 MG PO (04:13)
[2025-01-13] MEDS: KETOROLAC 30 MG/ML VIAL (*BKC) IM (04:13)
[2025-01-13] MEDS: LIDOCAINE 5% PATCH 1 PATCH TRANSDERM (04:14)
[2025-01-13] MEDS: CYCLOBENZAPRINE HCL 5 MG TABLET PO (04:14)
--- OUTSIDE RECORDS SUMMARY | 2025-01-13 04:32 | XMS_ITS | Encounter Summary ---
Author Organization [facility] Address [address] [place] [address] Care Team Providers Care Perfume Compounder Name Role Phone Amira Magallanes FACULTY NEUROPSYCHOLOGIST Unavailable [phone] Ricardo Mccray DO Unavailable Carmenza Montenegro PA-C Primary Care Provider [phone] Jefferson Mcdonald MD Unavailable [phone] Reason for Visit * Reason Onset Date Comments Refill Request 01/12/2025 Ropinirole 0.25m g Encounter Details Date Type Department Care Team (Late st Contact Info) Description 01/12/2025 Telephone [facility] [address] [place] [address] Carmenza Montenegro PA-C [address] [facility] [address] [place], [place] [address] Refill Request (Ropinirole 0.25mg ) Social History Tobacco Use Types Packs/Day Years [...] Sex Assigned at Female 11/02/2024 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 Answer Date of Assessment Author Status No 11/23/2021 2:40 PM MARKETING SEGMENT MANAGER Activ e * Do you have serious difficulty walking or climbing stairs? Answer Date of Assessment Author Status Yes 11/23/2021 2:40 PM MARKETING SEGMENT MANAGER Brie Ruiz RN Active * Do you [...] Date Author Status No 11/23/2021 2:40 PM Brie Fofana RN Active documented in this encounter Plan of Treatment Not on file documented as of this encounter Visit Diagnoses Diagnosis RLS (restless legs syndrome) Restless legs syndrome (RLS) documented in this encounter Additional Health Concerns Assessment Noted Time PHQ-9 Depression Total Score: 15 12/22/ 024 1:31 PM CDT documented as of this encounter Care Teams Perfume Compounder Relationship Specialty Start Date End Date Carmenza Montenegro PA-C [address] [place] [address] PCP - General PHYSICIAN FIELD CROP FARMING SUPERVISOR 06/14/22 Amira Magallanes NP Nurse Practitioner NURSE PRACTITIONER 01/03/22 Ricardo Mccray DO Consulting Physician INTERNAL MEDICINE 01/03/22 Jefferson Mcdonald MD [address] [place] [address] Physician NEUROMUSCULOSKELETAL MEDICINE 06/23/22 documented as of this encounter
--- OUTSIDE RECORDS SUMMARY | 2025-01-13 04:32 | XMS_ITS | Referral Summary ---
Author Organization [facility] Address [address] [place] [address] Care Team Providers Care Validation Consultant Name Role Phone Unknown, Notinfile Primary Care Provider Unavail able Encounters Date Type Department Care Team Description 12/19/2024 3:51 PM CDT - 12/19/2024 5:36 PM CDT Emergency [address] [address] Right hip pain (Primary Dx); Fall, initial encounter Discharge Disposition: Discharge to home or self care from Last 3 Months Allergies No known active allergies Medications lidocaine (LIDODERM) 5 %Indications:Pa in Place 1 patch on the skin daily Use patch for 12 hours on, 12 hours off. Discard after each use 7 patch 12/19/2024 Active traMADoL (ULTRAM) 50 mg tablet Take 1 tablet (50 mg total) by mouth every 6 (six) hours 20 tablet 12/19/2024 Active predniSONE (DELTASONE) 50 mg tablet Take 1 tablet (50 mg) by mouth daily for 5 days 5 tablet 12/19/2024 12/25/19 25 ibuprofen (ADVIL,MOTRIN) 600 mg tablet Take 1 tablet (600 mg total) by mouth 3 (three) times a day for 10 days 30 tablet 12/19/2024 12/30/19 25 Social History Tobacco Use Types Packs/Day Years Used Date Smoking Tobacco: Never Assessed Personal Safety Answer Date Recorded Have you ever been in or are you currently in a harmful physical or emotional relationship or is someone making you feel afraid or unsafe? Denies 12/19/2024 Comments Unknown Sex and Gender Information Value Date Recorded Sex Assigned at Not on file Legal Sex Female 2:27 AM INFORMATION DEVELOPER Gender Identity Not on file Sexual Orientation Not on file Last Filed Vital Signs Vital Sign Reading Time Taken Comments Blood Pressure 140/89 12/19/2024 4:10 PM CDT Pulse 54 12/19/2024 4:10 PM CDT Temperature 36.3 C (97.3 F) 12/19/2024 2:30 PM CDT Respiratory Rate 18 12/19/2024 4:10 PM CDT Oxygen Saturation 100% 12/19/2024 4:10 PM CDT Inhaled Oxygen Concentration - - Weight 95.3 kg (210 lb) 12/19/2024 2:30 PM CDT Height - - Body Mass Index - - Plan of Treatment Not on file Procedures Procedure Name Priority Date/Time Associated Diagnosis Comments CT HIP RIGHT WO CONTRAST ED 12/19/2024 3:05 PM CDT from Last 3 Months Results * CT Hip Right WO Contrast (12/19/2024 3:05 PM CDT) Anatomical Region Laterality Modality Lower Extremities Right Computed Tomog efra 12/19/2024 3:12 PM CDT Narrative 12/19/2024 3:14 PM CDT EXAM DESCRIPTION: CT HIP RIGHT WO CONTRAST REASON FOR STUDY: fall 4 days ago Pt arrives today from home via ems for evaluation of right hip pain after ground level fall 4 days ago. Denies any other injury, head strike, loc No sx or ca TECHNIQUE: CT scan of the none hip was performed without intravenous contrast. Reconstructed coronal and sagittal MPR images reviewed. Automated exposure control was used as a dose optimization technique for this examination. COMPARISON: None FINDINGS: Pelvic Bones: Incompletely visualized. No visible fracture. Hip Joint: No fracture or dislocation. Pelvic Soft Tissues: Unremarkable. Other: No other finding. IMPRESSION: No acute osseous abnormality. No other significant findings. THIS IS AN ELECTRONICALLY VERIFIED FINAL REPORT 12/19/2024 3:14 PM - Electronically signed by Chnadana Regalado M.D. KR T: Report ID: [id number] Reading Location: [id number] Procedure Note Chandana Regalado MD - 12/19/2024 EXAM DESCRIPTION: CT HIP RIGHT WO CONTRAST REASON FOR STUDY: fall 4 days ago Pt arrives today from home via ems for evaluation of right hip painafter ground level fall 4 days ago. Denies any other injury, head strike, loc No sx or ca TECHNIQUE: CT scan of the none hip was performed without intravenous contrast. Reconstructed coronal and sagittal MPR images reviewed.Automated exposure control was used as a dose optimization technique for this examination. COMPARISON: None FINDINGS: Pelvic Bones: Incompletely visualized. No visible fracture. Hip Joint: No fracture or dislocation. Pelvic Soft Tissues: Unremarkable. Other: No other finding. IMPRESSION: No acute osseous abnormality. No other significant findings. THIS IS AN ELECTRONICALLY VERIFIED FINAL REPORT 12/19/2024 3:14 PM - Electronically signed by Chandana Regalado M.D. KR T: Report ID: [id number] Reading Location: [place] [address] PROCEDURES Final Resu lt from Last 3 Months Insurance [facility] MEDICARE Care Teams Validation Consultant Relationship Specialty Start Date End Date Unknown, Notinfile PCP - General 12/19/24
--- OUTSIDE RECORDS SUMMARY | 2025-01-13 04:32 | XMS_ITS | Clinical Summary ---
Author Organization [facility] Address [address] [place] [address] Care Team Providers Care Hooker Inspector Name Role Phone Unknown, Notinfile Primary Care Provider Unavail able Allergies No known active allergies Medications lidocaine [...] 10 days 30 tablet 12/19/2024 12/30/19 25 Encounters Date Type Department Care Team Description 12/19/2024 3:51 PM CDT - 12/19/2024 5:36 PM CDT Emergency [address] [id number] Right hip pain (Primary Dx); Fall, initial encounter Discharge Disposition: Discharge to home or self care from Last 3 Months Social History Tobacco Use Types Packs/Day Years [...] on file Legal Sex Female 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 Gender Identity Not on file Sexual Orientation [...] Mass Index - - Plan of Treatment Health Maintenance Due Date Last Done Comments Depression Screening 1944 Fall Risk Assessment 1944 Osteoporosis Screening-Bone Density Scan 1944 Hepatitis B Screening 1962 Pneumococcal vaccine 65+ (1 of 1 - PCV) 1994 Zoster Vaccine (1 of 2) 1994 Well Visit 65+ 2009 Influenza Vaccine (Season Ended) 2025 DTaP/Tdap/Td Vaccine (2 - Td or Tdap) 07/31/2031 Procedures Procedure Name Priority Date/Time Associated Diagnosis [...] 3:14 PM - Electronically signed by Chandana CABRERA T: Report ID: [id number] Reading Location: [id number] Procedure Note Chandana Regalado MD - 12/19/2024 [...] 3:14 PM - Electronically signed by Chandana CABRERA T: Report ID: [id number] Reading Location: [id number] [facility] [address] PROCEDURES Final Resu lt from Last 3 Months Insurance [employer] MEDICARE Care Teams Hooker Inspector Relationship Specialty Start Date End Date Unknown, Notinfile PCP - General 12/19/24
--- OUTSIDE RECORDS SUMMARY | 2025-01-13 04:32 | XMS_ITS | Encounter Summary ---
Author Organization [facility] Address [address] [place] [address] Care Team Providers Care Ventilation Worker Name Role Phone Amira Magallanes PHOTOGRAPHIC LABORATORY SUPERVISOR Unavailable [phone] Ricardo Mccray DO Unavailable Carmenza Montenegro PA-C Primary Care Provider [phone] Jefferson Mcdonald MD Unavailable [phone] Reason for Visit * Reason Onset Date Comments Advise 01/07/2025 Encounter Details Date Type Department Care Team (Late st Contact Info) Description 01/07/2025 Telephone [facility] [place] Scheduling [address] [place] [address] Carmenza Montenegro PA-C [address] [facility] [address] [place], [place] [id number] Advise Social History Tobacco Use Types Packs/Day [...] Sex Assigned at Female 11/02/2024 1:14 PM AIR TRAFFIC SUPERVISOR Legal Sex Female 8:48 AM AIR TRAFFIC SUPERVISOR Gender Identity Not on file Sexual Orientation Not on file documented as of this encounter Functional Status * RETIRED Are you deaf or do you have serious difficulty hearing Answer Date of Assessment Author Status No 11/23/2021 2:40 PM AIR TRAFFIC SUPERVISOR Activ e * RETIRED Are you blind or do you have serious difficulty seeing, even when wearing glasses? Answer Date of Assessment Author Status No 11/23/2021 2:40 PM AIR TRAFFIC SUPERVISOR Activ e * Do you have serious difficulty walking or climbing stairs? Answer Date of Assessment Author Status Yes 11/23/2021 2:40 PM AIR TRAFFIC SUPERVISOR Brie Ruiz RN Active * Do you have difficulty dressing or bathing? Answer Date of Assessment Author Status Yes 11/23/2021 2:40 PM AIR TRAFFIC SUPERVISOR Brie Ruiz RN Active * Because of a physical, mental, or emotional condition, do you have difficulty doing errands alone such as visiting a doctor's office or shopping? Answer Date of Assessment Author Status Yes 11/23/2021 2:40 PM AIR TRAFFIC SUPERVISOR Brie Ruiz RN Active documented as of this encounter Mental Status * Because of a physical, mental, or emotional condition, do you have serious difficulty concentrating, remembering, or making decisions? Answer Entry Date Author Status No 11/23/2021 2:40 PM AIR TRAFFIC SUPERVISOR Brie Ruiz RN Active documented in this encounter Progress Notes * Neyda Reid MA - 01/07/2025 1:06 PM CDT Noted. * Sylvia Hunt - 01/07/2025 1:03 PM CDTSummary: home health Hello, We received the home health referral for Barabara. We will accept and add Barabara to our schedule.We do have up to a 3 day delay in start of care at this time. If we are able to see Barabara soonerwe will. Thank you Sylvia [facility] Home Care documented in this encounter Plan of Treatment Not on file documented as of this encounter Visit Diagnoses Not on filedocumented in this encounter Additional Health Concerns Assessment Noted Time PHQ-9 Depression Total Score: 15 024 1:31 PM CDT documented as of this encounter Care Teams Ventilation Worker Relationship Specialty Start Date End Date Carmenza Montenegro PA-C [address] [place] [address] PCP - General PHYSICIAN RIGGING AND CONTROLS AIRCRAFT MECHANIC 06/14/22 Amira Magallanes NP Nurse Practitioner NURSE PRACTITIONER 01/03/22 Ricardo Mccray DO Consulting Physician INTERNAL MEDICINE 01/03/22 Jefferson Mcdonald MD [address] [facility] [address] [place] [id number] Physician NEUROMUSCULOSKELETAL MEDICINE 06/23/22 documented as of this encounter
--- OUTSIDE RECORDS SUMMARY | 2025-01-13 04:32 | XMS_ITS | Encounter Summary ---
Author Organization [facility] Address [address] [place] [address] Care Team Providers Care Line Runner Name Role Phone Chelsey Michel SUPERINTENDENT PIER Primary Care Provider [phone] Ruth Ann Damian SUPERINTENDENT PIER Unavailable Ruth Ann Damian SUPERINTENDENT PIER Primary Care Provider [phone] Amira Magallanes SUPERINTENDENT PIER Unavailable Ricardo Mccray DO Unavailable Jefferson Mcdonald MD Unavailable [phone] Carmenza Montenegro PA-C Primary Care Provider + [phone] Jefferson Mcdonald MD Unavailable [phone] Allison Lobo Unavailable Encounter Details Date Type Department Care Team (Late st Contact Info) Description 12/20/2021 Prep for Procedure [facility] [place] [address] [id number] Lyndsay Trevino APNP [address] [place] [address] Social History Tobacco Use Types [...] Sex Assigned at Female 11/02/2024 1:14 PM DIRECTOR SALES TRAINING Legal Sex Female 8:48 AM DIRECTOR SALES TRAINING Gender Identity Not on file Sexual Orientation [...] Assessment Author Status No 11/23/2021 2:40 PM DIRECTOR SALES TRAINING Activ e * RETIRED Are you blind or do you have serious difficulty seeing, even when wearing glasses? Answer Date of Assessment Author Status No 11/23/2021 2:40 PM DIRECTOR SALES TRAINING Activ e * Do you have serious [...] Date Author Status No 11/23/2021 2:40 PM DIRECTOR SALES TRAINING Ruiz, Brie K , RN Active documented in this encounter Plan of Treatment Not on file documented as of this encounter Visit Diagnoses Diagnosis Abdominal pain- Primary Abdominal pain, unspecified site documented in this encounter Additional Health Concerns Assessment Noted Time PHQ-9 Depression Total Score: 1 11/15/19 22 11:08 AM DIRECTOR SALES TRAINING documented as of this encounter Care Teams Line Runner Relationship Specialty Start Date End Date Chelsey Michel NP [address] [place] [address] PCP - General NURSE PRACTITIONER 10/12/21 01/02/22 Ruth Ann Damian NP [address] [place] [address] PCP - General Nurse Practitioner Family 01/03/22 06/13/22 Carmenza Montenegro PA-C [address] [place] [address] PCP - General PHYSICIAN MATTRESS FILLING MACHINE TENDER 06/14/22 Allison Lobo APNP [address] [place], [place] [address] PCP - Hospice Attending 01/18/23 03/03/24 Ruth Ann Damian NP [address] [place] [address] Nurse Practitioner Nurse Practitioner Family 01/02/2202/08 Amira Magallanes NP [address] [place] [address] Nurse Practitioner NURSE PRACTITIONER 01/03/22 Ricardo Mccray DO [address] [place] [address] Consulting Physician INTERNAL MEDICINE 01/03/22 Jefferson Mcdonald MD [address] [place] [address] Physician NEUROMUSCULOSKELETAL MEDICINE 02/09/2201/08/23 Jefferson Mcdonald MD [address] [facility] [address] [place] [address] Physician NEUROMUSCULOSKELETAL MEDICINE 06/23/22 documented as of this encounter
--- OUTSIDE RECORDS SUMMARY | 2025-01-13 04:32 | XMS_ITS | Clinical Summary ---
Author Organization [facility] Address [address] [place] [address] Care Team Providers Care Gun Repair Clerk Name Role Phone Amira Magallanes TICKER MAINTAINER Unavailable [phone] Ricardo Mccray DO Unavailable Carmenza Lloyd PA-C Primary Care Provider [phone] Jefferson Mcdonald MD Unavailable [phone] Allergies Active Allergy Reactions Criticality Noted Date [...] Indications: Weight Loss 5 mg vial. , [id number] mL 11 024 Active doxepin (SINEQUAN) [...] AT BEDTIME 30 tablet 1 024 Active spironolactone (ALDACTONE) 50 MG tabletIndications :Primary [...] OF 450MG 90 tablet 1 025 Active rOPINIRole (REQUIP) 0.25 MG tabletIndications :Restless Leg Syndrome Take 1 tablet (0.25 mg total) by mouth daily. Indications: Restless Leg Syndrome 90 tablet 1 025 Active buPROPion XL [...] 450MG 90 tablet 1 024 2024 Discontinued(R eorder) rOPINIRole (REQUIP) 0.25 MG tabletIndications :RLS (restless legs syndrome) TAKE 1 TABLET(0.25 MG) BY MOUTH EVERY NIGHT AT BEDTIME 90 tablet 1 025 2024 Discontinued(R eorder) Active Problems Problem Noted Date Diagnosed Date [...] Encounters Date Type Department Care Team Description 01/12/2025 Telephone [facility] [address] [place] [address] Carmenza Lloyd PA-C Refill Request (Ropinirole 0.25mg ) 01/11/2025 10:30 AM CDT Home Care Visit [facility] Home Care [address] [place] [address] Lenore Maciel RN SN NON ADMIT SOC 01/07/2025 Telephone [facility] [place] Scheduling [address] [facility] [address] [place] [phone] Carmenza Lloyd PA-C Advise 01/04/[address] [address] Carmenza Lloyd PA-C Question 12/21/[address] [address] Carmenza Lloyd PA-C FYI 12/04/[address] [address] Carmenza Lloyd PA-C Information 11/09/[address] [address] Carmenza Lloyd PA-C Medication Request 11/03/[address] [address] Carmenza Lloyd PA-C Results (CXR) 11/02/2024 2:05 PM OUTBOARD MOTOR MECHANIC - 11/02/2024 11:59 PM OUTBOARD MOTOR MECHANIC Hospital Encounter [facility] [address] [place], [place] [id number] Carmenza Lloyd PA-C Discharge Disposition: Home or Self Care (Routine Discharge) 11/02/2024 1:40 PM OUTBOARD MOTOR MECHANIC Office Visit [address] [address] Carmenza Lloyd PA-C Follow Up (meds) 11/02/2024 Travel 10/30/[address] [address] Carmenza Lloyd PA-C Refill Request 10/26/[address] [address] Carmenza Lloyd PA-C FYI from [...] Sex Assigned at Female 11/02/2024 1:14 PM OUTBOARD MOTOR MECHANIC Legal Sex Female 8:48 AM OUTBOARD MOTOR MECHANIC Gender Identity Not on file Sexual Orientation Not on file Last Filed Vital Signs Vital Sign Reading Time Taken Comments Blood Pressure 155/81 11/02/2024 1:44 PM OUTBOARD MOTOR MECHANIC Pulse 72 11/02/2024 1:44 PM OUTBOARD MOTOR MECHANIC Temperature 37.2 C (98.9 F) 11/02/2024 1:33 PM OUTBOARD MOTOR MECHANIC Respiratory Rate 24 11/02/2024 1:33 PM OUTBOARD MOTOR MECHANIC Oxygen Saturation 100% 11/02/2024 1:33 PM OUTBOARD MOTOR MECHANIC Inhaled Oxygen Concentration - - Weight 100.7 kg (222 lb) 11/02/2024 1:33 PM OUTBOARD MOTOR MECHANIC Height 149.9 cm (4' 11 ) 11/02/2024 1:33 PM OUTBOARD MOTOR MECHANIC Body Mass Index 44.84 11/02/2024 1:33 PM OUTBOARD MOTOR MECHANIC Plan of Treatment Health Maintenance Due Date Last Done Comments Annual Medicare Wellness Visit 2009 Dexa Scan (General) 2009 COVID-19 Vaccine (1 - 2023-2 5 season) 2024 RSV Immunization [...] Td or Tdap) 07/31/2031 07/31/2021 PHQ-2 ([facility]) Completed 11/02/2024 Meningococcal B Vaccine Aged Out [...] XR CHEST PA+LAT Routine 11/02/2024 2:27 PM OUTBOARD MOTOR MECHANIC Pneumonia due to infectious organism, unspecified laterality, unspecified part of lung from Last 3 Months Results * XR CHEST PA+LAT (11/02/2024 2:27 PM OUTBOARD MOTOR MECHANIC) Anatomical Region Laterality Modality Chest Radiographic Nani ging 11/02/2024 2:48 PM OUTBOARD MOTOR MECHANIC Impressions 11/02/2024 2:52 PM OUTBOARD MOTOR MECHANIC =====IMPRESSION:===== No acute findings. Ordered By: CARMENZA LLOYD Interpreted By: Nicolas Mijares, 11/02/2024 2:48 PM Narrative 11/02/2024 2:52 PM OUTBOARD MOTOR MECHANIC [facility] [place] [address] EXAMINATION: PA AND LATERAL CHEST Exam date/time: 11/02/2024 2:20 PM Reason For Exam: pneumonia Cough Comparison: 07/20/2024 Technique: 2 views. Findings: Heart size normal. Proximal airways unremarkable. No suspicious pulmonary lesion, pneumothorax, or pleural effusion. Atherosclerosis. Scattered degenerative disc disease. Procedure Note Nicolas Mijares MD - 11/02/2024 [facility] [address] [place] [address] EXAMINATION: PA AND LATERAL CHEST Exam date/time: 11/02/2024 2:20 PM Reason For Exam: pneumonia Cough Comparison: 07/20/2024 Technique: 2 views. Findings: Heart size normal. Proximal airways unremarkable. No suspiciouspulmonary lesion, pneumothorax, or pleural effusion. Atherosclerosis. Scattered degenerative disc disease. =====IMPRESSION:===== No acute findings. Ordered By: CARMENZA LLOYD Interpreted By: Nicolas Mijares, 11/02/2024 2:48 PM Carmenza Lloyd PA-C GENERAL IMAGING Final Resu lt from Last [...] 11:33 AM 11/22/2021 12:01 PM Care Teams Gun Repair Clerk Relationship Specialty Start Date End Date Carmenza Lloyd PA-C [address] [place] [address] PCP - General PHYSICIAN LIFE SCIENTIST 06/14/22 Amira Magallanes NP Nurse Practitioner NURSE PRACTITIONER 01/03/22 Ricardo Mccray DO Consulting Physician INTERNAL MEDICINE 01/03/22 Jefferson Mcdonald MD [address] [facility] [address] [place] [id number] Physician NEUROMUSCULOSKELETAL MEDICINE 06/23/22
[2025-01-13] MEDS: oxyCODONE/ACETAMINOPHEN (*CRX) 5-325 MG TABLET 1 TABLET PO (05:52)
[2025-01-13 06:00] VITALS: BP 176/87; PULSE 82; RESP 17; O2SAT 99
--- NOTE | 2025-01-13 06:17 | ED_ITS ---
HPI - Back Pain/Injury General Chief Complaint: Back Pain/Injury Stated Complaint: INCREASING BACK PAIN Time Seen by Provider: 01/13/25 03:31 Source: patient Mode of arrival: EMS Limitations: no limitations History of Present Illness HPI Narrative: This is an 79-year-old female, who returns to the emergency department by EMS from home complaining of persistent low back pain for the past 3 days. The patient has a history of phones. She was seen in this emergency department 3 days ago with the same complaints of throbbing right lower back pain. She states her pain is moderate to severe but has not changed in character from her last visit. She is primarily concerned that she is not able to sleep. She has no other complaints at this time. Related Data Allergies Allergy/AdvReac Type Severity Reaction Status Date / Time No Known Allergies Allergy Verified 01/13/25 03:27 Review of Systems Review of Systems: All systems reviewed & are unremarkable except as noted in HPI and below PMFSH Past Medical History Medical History Depression Anxiety Hypertension Surgical History Surgical History Hx of cholecystectomy Social History Social History Smoking status: Never smoker Exam Narrative: GENERAL: Well-developed, well-nourished, and in no acute distress. HEAD: Normocephalic, atraumatic. EYES: PERRLA and EOMI. CHEST: Clear to auscultation. No respiratory distress. No wheezes rales or rhonchi HEART: Regular rate and rhythm. No murmur heard. Normal peripheral pulses. ABDOMEN: Soft, nontender, nondistended, normal active bowel sounds. BACK: No midline spine tenderness to palpation, no step-off or crepitus. Right paraspinal tenderness to palpation EXTREMITIES: Normal range of motion. No edema. SKIN: Warm, dry, no rash. NEURO: Alert and oriented x3. No focal deficit. Moving all 4 limbs spontaneously PSYCH: Normal mood and affect. Course Course Emergency Course: 06:43 - I reviewed the patient's previous labs in imaging. CT scan did not show any acute intra-abdominal process but did show lumbar spondylosis. After Toradol, Tylenol, lidocaine patches and Flexeril, the patient had did not significant improvement in her pain. An additional for cassette did improve. Will discharge with addition of Flexeril to her pain medications. I advised patient to follow-up with her primary care doctor and discuss alternative methods of pain control. I discussed the findings and recommendations with the patient. Discussed return and emergency precautions including signs/symptoms of cauda equina and epidural abscess. The patient voiced understanding and agreement with the plan. All questions answered to her satisfaction. Vital Signs Vital signs: Vital Signs Temperature 97.9 F 01/13/25 03:18 Pulse Rate 76 01/13/25 03:18 Respiratory Rate 20 01/13/25 03:18 Blood Pressure 184/79 H 01/13/25 03:18 Pulse Oximetry 98 01/13/25 03:18 Oxygen Delivery Room Air 01/13/25 03:18 Temperature 97.9 F 01/13/25 03:18 Pulse Rate 82 01/13/25 06:00 Respiratory Rate 17 01/13/25 06:00 Blood Pressure 176/87 H 01/13/25 06:00 Pulse Oximetry 99 01/13/25 06:00 Oxygen Delivery Room Air 01/13/25 03:18 MDM - Back Pain/Injury MDM Narrative Medical decision making narrative: Plan: Pain control, primary care follow-up Differential Diagnosis Differential diagnosis: Likely lumbar radiculopathy, sciatica, strain of lumbar region and other (Lumbar muscle spasm, other) Discharge Plan Discharge Clinical Impression: Lumbar radiculopathy Low back pain Qualifiers: Chronicity: acute Back pain laterality: right Sciatica presence: with sciatica Sciatica laterality: sciatica of right side Qualified Code(s): M54.41 - Lumbago with sciatica, right side Patient Disposition: Home Condition: Stable Instructions: Antibiotic Form, Back Pain (ED) Additional Instructions: You were seen in the emergency department. Your exam is not concerning for injury, infection or on these bleeding. Your given Toradol, lidocaine patches, Tylenol Flexeril and 1 Percocet. I recommend following up with your primary care doctor to discuss a TENS unit verses other means of pain control. If you develop fevers with severe back pain, loss of sensation in the groin, loss of bowel/bladder control, or if you have other emergent concerns for life, limb, or eyesight, return to the emergency department. Patient Language: Lebanese Prescriptions: Continued cyclobenzaprine 5 mg tablet 5 mg PO TID PRN (Reason: muscle spasm) Qty: 9 0RF No Action nitrofurantoin monohyd/m-cryst [Macrobid] 100 mg capsule 100 mg PO Q12H 5 Days Qty: 10 0RF Rx Instructions: must administer with a meal/food ondansetron 4 mg tablet,disintegrating 4 mg PO Q6-8H PRN (Reason: nausea and vomiting) Qty: 14 0RF oxycodone-acetaminophen 7.5-325 mg tablet 1 tablet PO BID PRN (Reason: pain) Qty: 6 0RF hydrocodone-acetaminophen 5-325 mg tablet 1 tablet PO Q6H PRN (Reason: pain) Qty: 14 0RF ibuprofen 800 mg tablet 800 mg PO TID PRN (Reason: pain) Qty: 20 0RF naloxone [Narcan] 4 mg/actuation spray,non-aerosol 4 mg intranasal Q3M PRN (Reason: opioid overdose) Qty: 2 0RF Rx Instructions: spray 1 dose into ONE nostril; alternate nostrils w each dose until help arrives Follow-up/Referrals: PHYSICIAN NOT ON STAFF,NONSTAFF [Primary Care Provider] - 2 Weeks Time of Disposition: 06:47
[2025-01-13 07:01] VITALS: BP 176/87; PULSE 82; RESP 17; O2SAT 99
== END 2025-01-13 07:03 | disposition home or self-care (01) ==
PROVIDERS: Emergency Provider Preventive Medicine Aerospace Medicine
DX: M54.41 Lumbago with sciatica, right side (principal); M54.16 Radiculopathy, lumbar region; F32.A Depression, unspecified; F41.9 Anxiety disorder, unspecified; I10 Essential (primary) hypertension
CPT/HCPCS: 96372; 99283; A9270; J1885

== ENCOUNTER 2025-03-06 09:00 | Outpatient (CLI) | payer MEDICARE, MEDICAID, SELFPAY ==
--- NOTE | ~2025-03-06 | MR_ITS ---
MRI of the right hip Clinical history: Pain Technique: Coronal T1-weighted, T2-weighted, and proton-density fat-sat images, and axial T1-weighted and proton-density fat-sat images were acquired through the pelvis. Coronal T2-weighted images and c oronal, axial, and sagittal proton-density fat-sat images were acquired through the right hip. Findings: There is no fracture or avascular necrosis of either hip. There is extensive high-grade cho ndromalacia the right hip joint with focal subchondral cystic change at the superior daniella and mild remodeling of the articular surfaces in this region. Small right hip joint effusion is present, presu mably reactive. There is probable degenerative tearing of the anterior acetabular labrum at the right hip. Left hip joint demonstrate minimal diffuse chondromalacia. Visualized musculature about the pelvis and right hip is unremarkable. No muscle atrophy or edema. Vi sualized tendons are intact. No soft tissue mass or fluid collection seen. IMPRESSION: Advanced degenerative change of the right hip joint, as detailed above. 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 Reviewed, dictated and finalized at location . IMPRESSION: Advanced degenerative change of the right hip joint, as detailed above. Associa sameera small joint effusion and probable degenerative tearing of the anterior acet abular labrum.
== END 2025-03-06 09:01 | disposition home or self-care (01) ==
LOC: MICIMG 09:05
PROVIDERS: PCP Physician Assistant; Visit Provider Physician Assistant
DX: M16.11 Unilateral primary osteoarthritis, right hip (principal); M25.461 Effusion, right knee; S83.8X1A Sprain of other specified parts of right knee, initial encounter; X58.XXXA Exposure to other specified factors, initial encounter
CPT/HCPCS: 73721